=== PATIENT | male | born 1945 | race Caucasian/White ===

== ENCOUNTER 2017-01-07 13:15 | Emergency (ER) | payer MEDICARE ==
[~2017-01-07] VITALS: Ht 175.3 cm; Wt 114.3 kg
[~2017-01-07 13:15] MED LIST: ADVIL PM CAPLE1 EACH PO; ADVIL200 M1 PO; ALBUTEROL2.5 MG/3 M INH; AMITRIPTYLINE H50 MG PO; AMITRIPTYLINE100 MG PO; AMOX TR-K CLV1 EACH PO; AMOXICILLIN875 MG PO; ASCORBIC ACID500 M3 PO; ASPIRIN EC81 MG PO; AZITHROMYCIN500 MG PO; BABY ASPIRIN81 MG PO; BACTRIM DS TAB1 EACH PO; BYETTA10 MCG/0.0 SQ; BYETTA10 MCG/0.0 SUB-Q; CETIRIZINE HCL10 MG PO; DICLOFENAC SODI75 MG PO; DOCUSATE SODIU100 MG PO; DULOXETINE HCL60 MG PO; ENDOCET 10-3251 EACH PO; FAMOTIDINE20 MG PO; FENOFIBRATE145 MG PO; FERROUS SULFAT325 MG PO; FUROSEMIDE40 MG PO; GABAPENTIN300 MG PO; GEMFIBROZIL600 MG PO; GLUCOPHAGE500 MG PO; LEVOTHYROXINE50 MCG PO; LIPITOR10 MG PO; LIPITOR40 MG PO; LISINOPRIL5 MG PO; MELOXICAM15 MG PO; METFORMIN HCL500 MG PO; METOPROLOL TART25 MG PO; MULTIVITAMINS1 EAC7 PO; ONDANSETRON HCL8 MG PO; OXYCODONE HCL20 M1 PO; PACERONE400 MG PO; PERCOCET 5-3251 EACH PO; POLYETHYLENE GL17 GM PO; POTASSIUM CHLO20 ME1 PO; PROAIR HFA8.5 GM INH; SERTRALINE HCL100 MG PO; SIMVASTATIN40 MG PO; TAMSULOSIN HCL0.4 MG PO; TRAZODONE HCL100 MG PO; TRAZODONE HCL50 MG PO; TYLENOL EXTRA500 MG PO; VITAMIN D32000 UNIT PO; ZESTRIL40 MG PO
[2017-01-07] MEDS ORDERED: LOVASTATIN40 MG PO (13:27)
[2017-01-07] MEDS ORDERED: DICLOFENAC SODI75 MG PO (13:28)
== END 2017-01-07 14:30 | disposition home or self-care (01) ==
LOC: ED 13:15
PROC: 0HQ0XZZ Repair Scalp Skin, External Approach (ICD-10-PCS; principal; 2017-01-07)
DX: S01.01XA Laceration without foreign body of scalp, initial encounter (principal); E11.9 Type 2 diabetes mellitus without complications; I10 Essential (primary) hypertension; J45.909 Unspecified asthma, uncomplicated; Z95.2 Presence of prosthetic heart valve; Z79.899 Other long term (current) drug therapy; Z79.82 Long term (current) use of aspirin; W11.XXXA Fall on and from ladder, initial encounter
CPT/HCPCS: 12002; 70450; 99284

== ENCOUNTER 2017-01-16 08:53 | Emergency (ER) | payer MEDICARE ==
[~2017-01-16] VITALS: Ht 175.3 cm; Wt 113.4 kg
[~2017-01-16 08:53] MED LIST changes: +LOVASTATIN40 MG PO
== END 2017-01-16 09:00 | disposition home or self-care (01) ==
LOC: ED 08:53
DX: Z48.817 Encounter for surgical aftercare following surgery on the skin and subcutaneous tissue (principal); E11.9 Type 2 diabetes mellitus without complications; I10 Essential (primary) hypertension; J45.909 Unspecified asthma, uncomplicated; Z96.643 Presence of artificial hip joint, bilateral; Z95.2 Presence of prosthetic heart valve; Z79.899 Other long term (current) drug therapy; Z79.82 Long term (current) use of aspirin; Z79.84 Long term (current) use of oral hypoglycemic drugs; Z79.2 Long term (current) use of antibiotics

== ENCOUNTER 2017-09-28 15:49 | Emergency (ER) | payer MEDICARE ==
[~2017-09-28] VITALS: Ht 175.3 cm; Wt 113.5 kg
[~2017-09-28 15:49] MED LIST changes: +GABAPENTIN600 MG PO
[2017-09-28] MEDS ORDERED: PERCOCET 7.5-31 EACH PO (16:53)
== END 2017-09-28 17:05 | disposition home or self-care (01) ==
LOC: ED 15:49
DX: S29.9XXA Unspecified injury of thorax, initial encounter (principal); I10 Essential (primary) hypertension; E11.9 Type 2 diabetes mellitus without complications; J45.909 Unspecified asthma, uncomplicated; Z79.899 Other long term (current) drug therapy; Z79.82 Long term (current) use of aspirin; Z79.84 Long term (current) use of oral hypoglycemic drugs; X58.XXXA Exposure to other specified factors, initial encounter
CPT/HCPCS: 71046; 99283

== ENCOUNTER 2017-09-30 04:14 | Emergency (ER) | payer MEDICARE ==
[~2017-09-30] VITALS: Ht 175.3 cm; Wt 113.4 kg
[~2017-09-30 04:14] MED LIST changes: +PERCOCET 7.5-31 EACH PO
[2017-09-30] MEDS ORDERED: DULOXETINE HCL60 MG PO (04:34)
[2017-09-30] MEDS ORDERED: ROSUVASTATIN CA20 MG PO (04:34)
[2017-09-30] MEDS ORDERED: ONDANSETRON HCL8 MG PO (04:36)
--- NOTE | 2017-09-30 06:55 | EKG ---
[facility] [address] [facility] [address] [place], [place] [address] Signed Normal sinus rhythm Normal ECG No previous ECGs available Confirmed by NAVDEEP LUCIANO MD ([id number]) on 09/30/2017 6:55:23 AM Electronically Signed By: NAVDEEP LUCIANO MD 09/30/17 0655 PATIENT NAME: CAROLYNLECHUYHUNTER RODRIGUEZ Electrocardiogram DATE OF : 43 PHYSICIAN: NAVDEEP LUCIANO MD REPORT #: [id number] REPORT IS CONFIDENTIAL AND NOT TO BE RELEASED WITHOUT AUTHORIZATION
[2017-10-01] MEDS ORDERED: METOPROLOL SUC100 MG PO (04:52)
[2017-10-01] MEDS ORDERED: METOPROLOL TART50 MG PO (04:56)
== END 2017-09-30 06:25 | disposition home or self-care (01) ==
LOC: ED 04:14
PROC: 0T9B70Z Drainage of Bladder with Drainage Device, Via Natural or Artificial Opening (ICD-10-PCS; principal; 2017-09-30)
DX: E11.22 Type 2 diabetes mellitus with diabetic chronic kidney disease (principal); I12.9 Hypertensive chronic kidney disease with stage 1 through stage 4 chronic kidney disease, or unspecified chronic kidney disease; N18.9 Chronic kidney disease, unspecified; G47.30 Sleep apnea, unspecified; J45.909 Unspecified asthma, uncomplicated; Z87.891 Personal history of nicotine dependence; Z79.899 Other long term (current) drug therapy; Z79.82 Long term (current) use of aspirin; Z79.84 Long term (current) use of oral hypoglycemic drugs
CPT/HCPCS: 51702; 71045; 80053; 81001; 83735; 83880; 84484; 85025; 93005; 93010; 96374; 99283

== ENCOUNTER 2017-09-30 13:45 | Inpatient (IN) | payer MEDICARE ==
[~2017-09-30] VITALS: Ht 175.3 cm; Wt 118.4 kg
[~2017-09-30 13:45] MED LIST changes: +ROSUVASTATIN CA20 MG PO
[2017-10-01] MEDS ORDERED: METOPROLOL SUC100 MG PO (04:52)
[2017-10-01] MEDS ORDERED: METOPROLOL TART50 MG PO (04:56)
--- NOTE | 2017-10-01 14:38 | EKG ---
[facility] [address] [facility] [place] [address] Signed Normal sinus rhythm Possible Left atrial enlargement Borderline ECG When compared with ECG of 30-SEP-2017 04:49, No significant change was found Confirmed by CASPER OLGUIN MD ([id number]) on 10/01/2017 2:38:30 PM Electronically Signed By: CASPER OLGUIN MD 10/01/17 1438 PATIENT NAME: CHUY RIVERA Electrocardiogram DATE OF : 43 PHYSICIAN: CASPER OLGUIN MD REPORT #: [id number] REPORT IS CONFIDENTIAL AND NOT TO BE RELEASED WITHOUT AUTHORIZATION
[2017-10-02] MEDS ORDERED: LISINOPRIL5 MG PO (14:43)
[2017-10-02] MEDS ORDERED: LOVASTATIN40 MG PO (15:21)
[2017-10-03] MEDS ORDERED: DOXAZOSIN MESYLA1 MG PO (09:59)
[2017-10-03] MEDS ORDERED: LISINOPRIL20 MG PO (10:01)
[2017-10-03] MEDS ORDERED: METOPROLOL TAR100 MG PO (10:01)
[2017-10-03] MEDS ORDERED: DOXAZOSIN MESYLA2 MG PO (10:10)
== END 2017-10-03 11:15 | disposition home or self-care (01) | DRG 682 ==
LOC: ED 13:45 → CCU 16:55
PROVIDERS: ADMIT Internal Medicine
PROC: 5A09357 Assistance with Respiratory Ventilation, Less than 24 Consecutive Hours, Continuous Positive Airway Pressure (ICD-10-PCS; principal; 2017-09-30)
DX: N17.9 Acute kidney failure, unspecified (principal); G93.41 Metabolic encephalopathy; J96.02 Acute respiratory failure with hypercapnia; M62.82 Rhabdomyolysis; E86.0 Dehydration; I10 Essential (primary) hypertension; N40.0 Benign prostatic hyperplasia without lower urinary tract symptoms; E11.9 Type 2 diabetes mellitus without complications; E03.9 Hypothyroidism, unspecified; E78.5 Hyperlipidemia, unspecified; G89.4 Chronic pain syndrome; F32.9 Major depressive disorder, single episode, unspecified; J45.909 Unspecified asthma, uncomplicated; T40.2X5A Adverse effect of other opioids, initial encounter; Z78.1 Physical restraint status; Z95.3 Presence of xenogenic heart valve; Z88.5 Allergy status to narcotic agent; Z79.84 Long term (current) use of oral hypoglycemic drugs; Z79.1 Long term (current) use of non-steroidal anti-inflammatories (NSAID); Z79.82 Long term (current) use of aspirin; Z79.899 Other long term (current) drug therapy
CPT/HCPCS: 36415; 36600; 70450; 71045; 80048; 80053; 81001; 82550; 82570; 82607; 82803; 83605; 83735; 83880; 84300; 84443; 84484; 84540; 85025; 87088; 93005; 93010; 94640; 94660; J0696; J1630; J1650; J2060; J2310; J2405; J2930; J3475; J7030; J7120

== ENCOUNTER 2018-08-07 10:38 | Emergency (ER) | payer MEDICARE ==
[~2018-08-07] VITALS: Ht 175.3 cm; Wt 120.3 kg
[~2018-08-07 10:38] MED LIST changes: +DOXAZOSIN MESYLA1 MG PO; +DOXAZOSIN MESYLA2 MG PO; +LISINOPRIL20 MG PO; +METOPROLOL SUC100 MG PO; +METOPROLOL TAR100 MG PO; +METOPROLOL TART50 MG PO
--- OUTSIDE RECORDS SUMMARY | 2018-08-07 10:42 | XMS ---
PreManage Notification: CHUY RIVERA Security Powderman Events No recent Security Events currently on file CRITERIA MET - Group Notification - PDMP CARE PROVIDERS DR GRAEME ARANA Primary Care Current PHONE: [phone] Abelardo Frausto MD Primary Care Current PHONE: Unknown oraleyda Case or Mail Examiner Current PHONE: Unknown Gerardo has no Care Guidelines for this patient. EThor VISIT COUNT (12 MO.) 4 [facility] TOTAL 4 NOTE: Visits indicate total known visits. ED/UCC VISIT TRACKING (12 MO.) 08/07/2018 10:39 [facility] [place] TYPE: Emergency COMPLAINT: - FALL 09/30/2017 13:46 [facility] [place] TYPE: Emergency COMPLAINT: - ALTERED LOC 09/30/2017 04:15 [facility] [place] TYPE: Emergency COMPLAINT: - SWELLING, DIZZY DIAGNOSES: - Hypertensive chronic kidney disease with stage 1 through stage 4 chronic kidney disease, or unspecified chronic kidney disease - Shortness of breath - Sleep apnea, unspecified - snf (current) use of oral hypoglycemic drugs - Type 2 diabetes mellitus with diabetic chronic kidney disease - Unspecified asthma, uncomplicated - Other filler leaf cutter long (current) drug therapy - MIDDLE SCHOOL PROFESSIONAL (CURRENT) USE OF ORAL HYPOGLYCEMIC DRUGS - Personal history of nicotine dependence - manager long term care (current) use of aspirin - Chronic kidney disease, unspecified 09/28/2017 15:49 [facility] [place] TYPE: Emergency COMPLAINT: - GLF/LT WRIST INJURY DIAGNOSES: - Unspecified asthma, uncomplicated - Other group home (current) drug therapy - Essential (primary) hypertension - snf (current) use of oral hypoglycemic drugs - Exposure to other specified factors, initial encounter - Type 2 diabetes mellitus without complications - MIDDLE SCHOOL PROFESSIONAL (CURRENT) USE OF ORAL HYPOGLYCEMIC DRUGS - Other chest pain - snf (current) use of aspirin - Unspecified injury of thorax, initial encounter INPATIENT VISIT TRACKING (12 MO.) 09/30/2017 16:55 [facility] [place] TYPE: Critical Care COMPLAINT: - RESP. FAILURE DIAGNOSES: - Metabolic encephalopathy - Benign prostatic hyperplasia without lower urinary tract symptoms - Hypothyroidism, unspecified - Rhabdomyolysis - manager long term care (current) use of oral hypoglycemic drugs - Other group home (current) drug therapy - Adverse effect of other opioids, initial encounter - Chronic pain syndrome - Type 2 diabetes mellitus without complications - Hyperlipidemia, unspecified - Essential (primary) hypertension - Presence of xenogenic heart valve - Acute kidney failure, unspecified - Unspecified asthma, uncomplicated - Allergy status to narcotic agent status - snf (current) use of aspirin - Acute respiratory failure with hypercapnia - Major depressive disorder, single episode, unspecified - Physical restraint status - manager long term care (current) use of non-steroidal anti-inflammatories (NSAID) - Dehydration [email or web address]
[2018-08-07] MEDS ORDERED: VITAMIN C1000 MG PO (11:49)
[2018-08-07] MEDS ORDERED: ZYRTEC10 M3 PO (11:50)
== END 2018-08-07 13:45 | disposition home or self-care (01) ==
LOC: ED 10:38
DX: S39.012A Strain of muscle, fascia and tendon of lower back, initial encounter (principal); W18.30XA Fall on same level, unspecified, initial encounter; E11.9 Type 2 diabetes mellitus without complications; I10 Essential (primary) hypertension; J45.909 Unspecified asthma, uncomplicated; Z87.891 Personal history of nicotine dependence; Z88.5 Allergy status to narcotic agent; Z79.899 Other long term (current) drug therapy; Z79.82 Long term (current) use of aspirin
CPT/HCPCS: 72100; 99283

== ENCOUNTER 2018-08-07 19:46 | Emergency (ER) | payer MEDICARE ==
[~2018-08-07] VITALS: Ht 175.3 cm; Wt 120.3 kg
[~2018-08-07 19:46] MED LIST changes: +VITAMIN C1000 MG PO; +ZYRTEC10 M3 PO
--- OUTSIDE RECORDS SUMMARY | 2018-08-07 19:50 | XMS ---
PreManage Notification: CHUY RIVERA Security Brake Repairer Events No recent Security Events currently on file CRITERIA MET - Group Notification - [facility] - 2 Visits in [address] GRAEME ARANA Primary Care Current PHONE: [phone] Abelardo Frausto MD Primary Care Current PHONE: Unknown isabel Case or Orthodontic Technician Assistant Current PHONE: Unknown Gerardo has no Care Guidelines for this patient. E.D. VISIT COUNT (12 MO.) 5 [facility] TOTAL 5 NOTE: Visits indicate total known visits. ED/UCC VISIT TRACKING (12 MO.) 08/07/2018 19:47 [facility] [place] TYPE: Emergency COMPLAINT: - WEAKNESS 08/07/2018 10:39 [facility] [place] TYPE: Emergency COMPLAINT: - FALL 09/30/2017 13:46 [facility] [place] TYPE: Emergency COMPLAINT: - ALTERED LOC 09/30/2017 04:15 [facility] [place] TYPE: Emergency COMPLAINT: - SWELLING, DIZZY DIAGNOSES: - Hypertensive chronic kidney disease with stage 1 through stage 4 chronic kidney disease, or unspecified chronic kidney disease - Shortness of breath - Sleep apnea, unspecified - parts counterman (current) use of oral hypoglycemic drugs - Type 2 diabetes mellitus with diabetic chronic kidney disease - Unspecified asthma, uncomplicated - Other correction (current) drug therapy - PEST CONTROL SPECIALIST (CURRENT) USE OF ORAL HYPOGLYCEMIC DRUGS - Personal history of nicotine dependence - [facility] (current) use of aspirin - Chronic kidney disease, unspecified 09/28/2017 15:49 [facility] [place] TYPE: Emergency COMPLAINT: - GLF/LT WRIST INJURY DIAGNOSES: - Unspecified asthma, uncomplicated - Other correction (current) drug therapy - Essential (primary) hypertension - [facility] (current) use of oral hypoglycemic drugs - Exposure to other specified factors, initial encounter - Type 2 diabetes mellitus without complications - PEST CONTROL SPECIALIST (CURRENT) USE OF ORAL HYPOGLYCEMIC DRUGS - Other chest pain - parts counterman (current) use of aspirin - Unspecified injury of thorax, initial encounter INPATIENT VISIT TRACKING (12 MO.) 09/30/2017 16:[address] [facility] [place] TYPE: Critical Care COMPLAINT: - RESP. FAILURE DIAGNOSES: - Metabolic encephalopathy - Benign prostatic hyperplasia without lower urinary tract symptoms - Hypothyroidism, unspecified - Rhabdomyolysis - [facility] (current) use of oral hypoglycemic drugs - Other termite control technician (current) drug therapy - Adverse effect of other opioids, initial encounter - Chronic pain syndrome - Type 2 diabetes mellitus without complications - Hyperlipidemia, unspecified - Essential (primary) hypertension - Presence of xenogenic heart valve - Acute kidney failure, unspecified - Unspecified asthma, uncomplicated - Allergy status to narcotic agent status - [facility] (current) use of aspirin - Acute respiratory failure with hypercapnia - Major depressive disorder, single episode, unspecified - Physical restraint status - [facility] (current) use of non-steroidal anti-inflammatories (NSAID) - Dehydration [email or web address]
--- NOTE | 2018-08-08 15:35 | EKG ---
[facility] [address] [facility] [place], [place] [address] Signed Normal sinus rhythm Possible Left atrial enlargement Borderline ECG When compared with ECG of 30-SEP-2017 14:34, No significant change was found Confirmed by TERESITA MALONE DO ([id number]) on 08/08/2018 3:35:10 PM Electronically Signed By: TERESITA MALONE DO 08/08/18 1535 PATIENT NAME: CHUY RIVERA Electrocardiogram DATE OF : 43 PHYSICIAN: TERESITA MALONE DO REPORT #: [id number] REPORT IS CONFIDENTIAL AND NOT TO BE RELEASED WITHOUT AUTHORIZATION
== END 2018-08-08 01:24 | disposition short-term general hospital (02) ==
LOC: ED 19:46 → CCU 23:57 → ED 08-08 01:24
DX: N28.9 Disorder of kidney and ureter, unspecified (principal); R41.82 Altered mental status, unspecified; R07.9 Chest pain, unspecified; R79.89 Other specified abnormal findings of blood chemistry; E11.9 Type 2 diabetes mellitus without complications; I10 Essential (primary) hypertension; J45.909 Unspecified asthma, uncomplicated; Z87.891 Personal history of nicotine dependence; Z88.5 Allergy status to narcotic agent; Z79.899 Other long term (current) drug therapy; Z79.82 Long term (current) use of aspirin
CPT/HCPCS: 70450; 71045; 80053; 81001; 84484; 85025; 93005; 93010; 99285-25; G0480

== ENCOUNTER 2019-06-20 08:12 | Inpatient (IN) | payer MEDICARE, OTHER ==
[~2019-06-20] VITALS: Ht 175.3 cm; Wt 110.6 kg
[~2019-06-20 08:12] MED LIST changes: +LISINOPRIL-HCT1 EAC1 PO; +LISINOPRIL40 MG PO; +METOPROLOL SUC200 MG PO; -MULTIVITAMINS1 EAC7 PO; +MULTIVITAMINS1 EAC8 PO
--- OUTSIDE RECORDS SUMMARY | 2019-06-20 08:16 | XMS ---
PreManage Notification: CHUY RIVERA Security Vmware Consultant Events No recent Security Events currently on file CRITERIA MET - Group Notification - [facility] Guidelines - [facility] CARE PROVIDERS GRAEME ARANA Internal Medicine 08/08/2018-Current PHONE: Unknown DR GRAEME ARANA Primary Care Current PHONE: [phone] Abelardo Frausto MD Primary Care Current PHONE: Unknown oraleyda Case or Pocket Builder Current PHONE: Unknown Gerardo has no Care Guidelines for this patient. Care History Medical/Surgical 08/08/2018 [facility] - CHW RECEIVED CASE MANAGEMENT REFERRAL AND ED CASE MANAGEMENT CONSULT- PATIENT IS A CLINIC PATIENT AND REFERRAL WAS PROVIDED TO NAVEEN FOR FURTHER FOLLOW UP. - Patient is currently established with [facility]. If patient is seen in the ED during business hours. Please contact CHWs at [facility]. Care Recommendation: This patient has had 5 or more Emergency Department visits in the last 12 months.\T\nbsp; Patient requires education on the scope and purpose of the ED as an acute care provider not a Primary Care Provider and should not be utilized for chronic conditions.\T\nbsp; These are guidelines and the provider should exercise clinical judgment when providing care. E.D. VISIT COUNT (12 MO.) 4 [facility] TOTAL 4 NOTE: Visits indicate total known visits. ED/UCC VISIT TRACKING (12 MO.) 06/20/2019 08:13 [facility] [place] TYPE: Emergency COMPLAINT: - COUGH, FEVER 11/17/2018 17:41 [facility] [place] TYPE: Emergency COMPLAINT: - VOMITING 08/07/2018 19:47 [facility] [place] TYPE: Emergency COMPLAINT: - SEPSIS UTI DIAGNOSES: - long term care pharmacist (current) use of aspirin - Other shelter (current) drug therapy - Weakness - Disorder of kidney and ureter, unspecified - Altered mental status, unspecified - Essential (primary) hypertension - Unspecified asthma, uncomplicated - Personal history of nicotine dependence - Chest pain, unspecified - Other specified abnormal findings of blood chemistry - Allergy status to narcotic agent status - 1 Type 2 diabetes mellitus without complications 08/07/2018 10:39 [facility] [place] TYPE: Emergency COMPLAINT: - FALL DIAGNOSES: - Other termite control servicer (current) drug therapy - Strain of muscle, fascia and tendon of lower back, init - Personal history of nicotine dependence - skilled nursing (current) use of aspirin - Allergy status to narcotic agent status - Essential (primary) hypertension - Unspecified asthma, uncomplicated - Fall on same level, unspecified, initial encounter - 1 Type 2 diabetes mellitus without complications INPATIENT VISIT TRACKING (12 MO.) 11/17/2018 17:42 [facility] [place] TYPE: Observation COMPLAINT: - HYPONATREMIA, GASTRITIS DIAGNOSES: - Other termite control servicer (current) drug therapy - Dehydration - Viral intestinal infection, unspecified Viral int - Personal history of nicotine dependence - Insomnia, unspecified - Presence of prosthetic heart valve - Hypomagnesemia - Cervicalgia - Allergy status to narcotic agent status - skilled nursing (current) use of aspirin - Heatstroke and sunstroke, initial encounter - Essential (primary) hypertension - Other chronic pain - Other disorders of phosphorus metabolism - Hypo-osmolality and hyponatremia - Lower abdominal pain, unspecified - Hypokalemia - Unspecified asthma, uncomplicated - Hypothyroidism, unspecified - 1 Type 2 diabetes mellitus without complications - Benign prostatic hyperplasia without lower urinry tract symp 08/07/2018 23:57 [facility] [place] TYPE: Critical Care COMPLAINT: - SEPSIS UTI [email or web address]
--- NOTE | 2019-06-20 11:46 | NUR ---
MANY FAMILY MEMBERS IN ROOM. NO FUTHER CHANGES.
--- NOTE | 2019-06-20 14:15 | NUR ---
PT ADMITTED TO ROOM 130 IN DROPPLET ISOLATION. PT IS COUGHING ALL OVER HIMSELF AND OTHERS IN THE ROOM. GRANDSON IN ROOM AT THIS TIME AND DAUGHTER IN THE ROOM. DAUGHTER SAI WILL TAKE HOME PT WALLET. LUNCHED ORDER FOR PT THIS AFTERNOON.
--- NOTE | 2019-06-20 14:33 | NUR ---
PT UP TO BS COMMODE VOID ON THE FLOOR AND NOT ONE BIT IN THE COMMODE. FLOOR CLEANED UP. PT STATES "I HAVE GAINED WEIGHT SO NOW MY RUTHANN DOES NOT STICK OUT SO THAT IS WHY I PEE ON THE FLOOR" THIS VEHICLE INSPECTOR DID NOT SAY A WORD TO PT.
--- NOTE | 2019-06-20 17:01 | NUR ---
PT INCONTENT OF URINE IN BED. PT STATES " I COULD NOT FIND MY CALL LIGHT" CALL LIGHT IS WITHIN REACH ON HIS STOMACH. COMPLETE LINE CHANGE DONE AND PT GIVEN A PARTICAL BEDBATH. PT UP TO THE CHAIR FOR DINNER.
--- NOTE | 2019-06-20 17:10 | EKG ---
[facility] [address] [place] [address] Signed Sinus tachycardia with frequent premature ventricular complexes Possible Left atrial enlargement Borderline ECG When compared with ECG of 17-NOV-2018 18:18, premature ventricular complexes are now present Confirmed by CASPER OLGUIN MD ([id number]) on 06/20/2019 5:10:09 PM Electronically Signed By: CASPER OLGUIN MD 06/20/19 1710 PATIENT NAME: CHUY RIVERA Electrocardiogram DATE OF : 43 PHYSICIAN: CASPER OLGUIN MD REPORT #: [id number] REPORT IS CONFIDENTIAL AND NOT TO BE RELEASED WITHOUT AUTHORIZATION
--- NOTE | 2019-06-20 17:43 | NUR ---
PT REMAINS UP IN THE CHAIR AT THIS TIME EATTING DINNER, CALL LIGHT WITHIN REACH. PT HAS TV ON. NO C/O'S AT THIS TIME.
--- NOTE | 2019-06-20 18:47 | NUR ---
PT AMBULATED TO BATHROOM, VOIDED AND BACK TO THE BED. PT ATE MOST OF HIS DINNER BUT DID NOT LIKE THE BREAD.
--- NOTE | 2019-06-20 19:59 | NUR ---
CALL LIGHT ANSWERED, PT REQUESTING PM MEDS AND EXPRESSES CONCERN REGARDING INCONTINTENCE. EDUCATION PROVIDED ON MED SCHEDULE AND SLEEP HYGIENE, PT VERBALIZED UNDERSTANDING. PT ORIENTED TO CALL LIGHT, BUILT IN BED CALL LIGHT, AND URINAL AT BEDSIDE. R/T IN ROOM TO GIVE NEB AND ASSESS PT.
--- NOTE | 2019-06-20 20:25 | NUR ---
PT SBA TO BEDSIDE, EDUCATION ON URINAL USE, PT DECLINED AND REQUEST BSC. PT REFUSING TO FOLLOW COMMANDS TO SAFELY SIT. LARGE VOID ONTO FLOOR. PT CLEANED AND ASSISTED BACK TO BED. PT ADVISED FOR SAFETY BEDSIDE URINAL WILL BE USED, PT AGREEABLE. ASSESSMENT COMPLETED SEE DOCUMENTATION. CALL LIGHT WITHIN REACH. PT ABLE TO DEMONSTRATE HE CAN REACH CALL LIGHT.
--- NOTE | 2019-06-20 21:25 | NUR ---
PM MED GIVEN, EDUCATION PROVIDED ON TAMIFLU, NO QUESTIONS. ASSESSED NEED TO VOID, DECLINED. DECLINED PM CARE AT THIS TIME. CALL LIGHT WITHIN REACH.
--- NOTE | 2019-06-20 22:14 | NUR ---
PT CONTINUES TO HAVE CONSTANT NAGGING COUGH. PRN TESSALON PERLS GIVEN. TOLIETING OFFERED, DECLINED. CALL LIGHT WITHIN REACH.
--- NOTE | 2019-06-21 00:26 | NUR ---
NO ACUTE CHANGES TO ASSESSMENT. PT ENCOURAGED TO WEAR OXYMASK, REFUSED. PT AGREEABLE TO NC. OXYGEN TITRATED TO 4L NC. AFEBRILE. COUGH CONTINUES, PRN MEDICATION GIVEN. TOILETING OFFERED, DECLINED. DENIES OTHER NEEDS. CALL LIGHT WITHIN REACH AND ASSESSED ABILITY TO REACH CALL LIGHT.
--- NOTE | 2019-06-21 02:02 | NUR ---
PT RESTING WITH EYES CLOSED, RESPIRATIONS EVEN, SPO2 92% ON 4L NC. NO ACUTE DISTRESS NOTED. NO ACUTE CHANGES.
--- NOTE | 2019-06-21 03:50 | NUR ---
CALL LIGHT ANSWERED, PT SBA TO BEDSIDE TO USE URINAL, HELP NEEDED, VOID 580. PT NOTED TO BE DIAPHORETIC, TEMP 99.9 ORALLY, C/O 5/10 GENERALIZED PAIN, 500 MG PRN TYLENOL GIVEN. WASH CLOTH FOR FACE AND BODY PROVIDED AND GOWN CHANGE. LINEN CHANGED. BACK TO BED. WATER OFFERED, DECLINED AND REQUESTS DIET SODA, PROVIDED. ASSESSMENT UNCHANGED. PRN COUGH MEDICATION PROVIDED. ICE PACK PROVIDED. CALL LIGHT WITHIN REACH. DENIES OTHER NEEDS. R/T IN ROOM TO GIVE NEB AND ASSESS PT.
--- NOTE | 2019-06-21 05:30 | NUR ---
PT C/O ABD PAIN FROM COUGH. STATES A PILLOW HELPED WHEN HE HAD OPEN HEART SURGERY. REINFORCED BRACE TECHNIQUE AND PILLOW PROVIDED.
--- NOTE | 2019-06-21 06:19 | NUR ---
PT STATES THE BRACE PILLOW "HAS HELPED SO MUCH." PRN COUGH MED GIVEN. UPDATED PLAN OF CARE. BREAKFAST ORDER OBTAINED. DENIES OTHER NEEDS. CALL LIGHT WITHIN REACH.
--- NOTE | 2019-06-21 07:30 | NUR ---
REPORT RECIEVED. PATIENT REMAINS IN DROPLET PRECAUTIONS. IS SLEEPING WITH HOB ELEVATED.
--- NOTE | 2019-06-21 08:25 | NUR ---
UP TO CHAIR FOR BREAKFAST. COOPERATIVE.
--- NOTE | 2019-06-21 09:10 | NUR ---
TOOK BREAKFAST WELL. TO BR TO VOID AND EXPELL LIQ STOOL. THEN BACK TO BED. LESS SHORT OF BREATH WITH EXERTION.
--- NOTE | 2019-06-21 10:00 | NUR ---
RESTFUL. WATCHING TV IN BED. IS W/O C/O.
--- NOTE | 2019-06-21 12:45 | NUR ---
UP TO CHAIR FOR LUNCH. IS FAIRLY STABLE ON FEET.
--- NOTE | 2019-06-21 13:30 | NUR ---
TOOK LUNCH WELL. WISHES TO REMAIN IN CHAIR. IS W/O C/O OR REQUESTS. CALL LIGHT WITHIN REACH.
--- NOTE | 2019-06-21 15:58 | NUR ---
REMAINS IN CHAIR. NO CHANGES IN ASSESSMENT. CONTINUES WITH LOOSE HACKING COUGH.
--- NOTE | 2019-06-21 16:20 | NUR ---
ambulated to BR. PATIENT IS SOMEWHAT FORGETFUL AND CONFUSED. IS UNABLE TO ANSWERE QUESTIONS. IS FRUSTRATED. IS NOT ABLE TO RATE CURRRENT PAIN LEVEL. TEMP-100.1. TYLENOL 500 MG PO GIVEN. IS MORE UNSTEADY ON FEET, WALKER USED FOR AMBULATION.
--- NOTE | 2019-06-21 17:00 | NUR ---
REMAINS CONFUSED. ASSISTED PATIENT TO BED. CONTINUES TO HAS HARSH COUGH BUT NOT FREQUENT EARLIER.
--- NOTE | 2019-06-21 18:20 | NUR ---
C/O ABOUT THE FOOD AT THIS HOSPITAL. STATES THE BAKED POTATOE WASN'T WORTH EATING. HE THEN BAEGAN TO C/O ABOUT TO FOOD HE ATE YESTERDAY. TOLD PATIENT THAT I WOULD PASS THE MESSAGE ON TO HEAD OF DIETARY, AND IF HE WOULD LIKE HE COULD TALK TO THE HEAD OF DIETARY. ASKED PATIENT IF I COULD GET HE ANYTHING ELSE. ICE CREAM REQUESTED. PATIENT IS NOT CONFUSED NOW EARLIER.
--- NOTE | 2019-06-21 19:08 | NUR ---
REPORT TO NEXT SHIFT. NO FUTHER CHANGES
--- NOTE | 2019-06-21 20:24 | NUR ---
PT ALERT AND WATCHING TV. STILL VERY DISGRUNTLED ABOUT MEALS HERE. PT TO SPEAK WITH DIETARY DEPT. HAS HARSH COUGH THAT PT STAES IS NON PRODUCTIVE. NEB TX GIVEN AND TY WELL. NO SOB AT REST. DENIES NEED TO VOID.
--- NOTE | 2019-06-21 22:40 | NUR ---
SLEEPING, [address] AND SATS APR TO , REPLACED AND SATS BACK TO MID 90'S.
--- NOTE | 2019-06-21 23:42 | NUR ---
NOTES SATS DEC MID 80'S. O2 MASK FOUND OFF. PT SLEEPING SOUNDLY, AWAKENED VERY BRIEFLY DURING ASSESSMENT THEN BACK TO SLEEP. HAS OCC COUGH.
--- NOTE | 2019-06-22 00:55 | NUR ---
HR NOTED TO BE UP TO 110, TEMP 100.8. GIVEN 500MG TYLENOL PO. DENIES NEED TO VOID.
--- NOTE | 2019-06-22 02:00 | NUR ---
SLEEPING. WILL TAKE OXYMASK OFF IN SLEEP, REPLACED FREQ.
--- NOTE | 2019-06-22 03:37 | NUR ---
AWAKE REQUESTING COOL WATER. NO OTHER C/O. AFEBRILE AT THIS TIME. DENIES NEED TO VOID.
--- NOTE | 2019-06-22 05:45 | NUR ---
SLEEPING SOUNDLY OXYMASK IN PLACE AND HOB LOWER THAN EARLIER.
--- NOTE | 2019-06-22 06:11 | NUR ---
LAB IN TO DRAW. PT AWAKE, DENIES NEED TO VOID AND HAS HX OF URGENCY. LITTLE PO INTAKE THROUGH NIGHT HAS BEEN SLEEPING.
--- NOTE | 2019-06-22 07:31 | NUR ---
AMB TO BR TO VOID AND PASSING LARGE AMTS GAS. MISSED HAT SO VOID IS UNMEASURED. BACK TO BED. STATES DOESN'T FEEL ANYMORE SHORT OF BREATH THAN USUAL.
--- NOTE | 2019-06-22 08:00 | NUR ---
ASSESSMENT DONE. STATES PAIN IS LESS TODAY, IS FEELING BETTER TODAY. IS UNDERSTANDING OF PLAN OF CARE FOR DAY.
--- NOTE | 2019-06-22 08:20 | NUR ---
UP TO CHAIR FOR BREAKFAST.
--- NOTE | 2019-06-22 09:00 | NUR ---
TOOK BREAKFAST FAIR. SPONGE BATH GIVEN. LESS COUGHING TODAY.
--- NOTE | 2019-06-22 09:20 | NUR ---
BACK TO BED. WATCHING TV.
--- NOTE | 2019-06-22 11:45 | NUR ---
DR. MALONE HERE TO SEE PATIENT. ORDERS RECIEVED TO TRANSFER TO MED-SURG.
--- NOTE | 2019-06-22 12:20 | NUR ---
REFUSING LUNCH. C/O OF THE FOOD HE HAS HAD HERE. SAID HIS GRANDDAUGHTER WILL BE BRING HIM IN FOOD. DIETARY DEPARTMENT MAD AWARE OF THIS.
--- NOTE | 2019-06-22 13:15 | NUR ---
REPORT TO MED-SURG.
--- NOTE | 2019-06-22 13:35 | NUR ---
AMBULATED TO ROOM 118 FROM 130. TOLERATED WELL.
--- NOTE | 2019-06-22 13:59 | NUR ---
PT WALKED OVER TO THE FLOOR FROM THE UNIT WITH FWW. HE WAS ON 4L O2 VIA NC. TOLERATED WELL. ALL PERSONAL BELONGINGS BROUGHT OVER TO NEW ROOM. LUNGS ARE CORSE THROUGHOUT, WITH SOME RONCHI. SWITCHED TO OXYMASK PER PT PREFRENCE AT 2L. PT BACK IN BED. FAMILY AT BEDSIDE.
--- NOTE | 2019-06-22 18:47 | NUR ---
PT IS REQUESTING A SHOWER. HE DECLINED A SHOWER SEVERAL TIMES THIS AFTERNOON. HE WANTED A SHOWER AFTER DINNER. PEER EDUCATOR IS GETTING HIM IN THE SHOWER.
--- NOTE | 2019-06-22 19:00 | NUR ---
BEDSIDE REPORT RECEIVED FROM OFFGOING RNSUPA
--- NOTE | 2019-06-22 19:02 | NUR ---
DID PATIENT'S VITALS AND I AND O BEFORE GETTING IN THE SHOWER. HE WASHED HIS WHOLE BODY EXCEPT HE NEEDED HELP WASHING HIS BACK. NOW PATIENT IS IN BED WATCHING TV AND RESTING. HAS HIS OXYGEN PARACHUTIST/COMBATANT DIVER QUALIFIED LIGHT.
--- NOTE | 2019-06-22 20:06 | NUR ---
ANSWERED CALL LIGHT. SBA TO THE BATHROOM. PATIENT REFUSED TO USE THE WALKER, STATED"I DONT NEED THAT".
--- NOTE | 2019-06-22 21:34 | NUR ---
PT ASSESSMENT COMPLETE. PT DENIES PAIN OR NAUSEA. PT REPORTS SOB, ESPECIALLY AFTER COUGHING HE STATES. PT REPORTS PRODUCTIVE COUGH. LUNG SOUNDS WITH RHONCI AND EXPIRATORY WHEEZE THROUGHOUT. OXYMASK IN PLACE @ 2LPM. IV FLUSHED, PATENT, WNL. PT ASKING IF OBIE KNOWS WHEN HE WOULD BE ABLE TO GO HOME. WRITTEN AND VERBAL EDUCATION PROVIDED REGARDING INFLUENZA, TYPICAL COURSE OF CARE. PT ASKS APPROPRIATE QUESTIONS. STATES UNDERSTANDING. PT DENIES FURTHER NEEDS AT THIS TIME. CALL LIGHT IN REACH.
--- NOTE | 2019-06-23 00:54 | NUR ---
PT FOUND RESTING WITH EYES CLOSED, SITTING ON EDGE OF BED. PT IS VERY DROWSY, HAD A HARD TIME FOLLOWING COMMANDS TO GET LAID BACK IN BED. ON AWAKE COUNSELOR ASKS IF PT'S NIGHT MEDS MAKE HIM DROWSY, HE SAYS THEY DO. PT REPORTS PAIN AND SHOULDER PAIN, RATES 6/10. PRN TYLENOL ADMINISTERED. PT RESTING, LAID BACK IN BED. URINAL AND CALL LIGHT IN REACH.
--- NOTE | 2019-06-23 02:13 | NUR ---
PT RESTIN GIN BED WITH EYES CLOSED. RESPIRATIONS LABORED, EVEN. OXYMASK OUT OF PLACE, FIXED BY THIS BILLET ASSEMBLER. PT WAKES UP BRIEFLY, FALLS BACK TO SLEEP EASILY. CALL LIGHT IN REACH.
--- NOTE | 2019-06-23 02:56 | NUR ---
PT ASSESSMENT COMPLETE. PT WAKES EASILY BUT REMAINS VERY DROWSY THROUGHOUT ASSESSMENT. PT AGREES TYLENOL HELPED WITH PAIN. REPORTS LIGHT SOB. DENIES NAUSEA. LUNG SOUNDS WITH RHONCI THROUGHOUT. OXYMASK AGAIN DISPLACED, FIXED BY THIS SAND SHOVELER. PT DENIES NEEDS. CALL LIGHT IN REACH.
--- NOTE | 2019-06-23 05:30 | NUR ---
PT RESTED WELL AFTER HIS SCHEDULED PM MEDICATIONS. TYLENOL X 1 FOR PAIN. PT REPORTS SOB WITH COUGHING. O2 @ 2LPM VIA OXYMASK. LUNG SOUNDS ADVENTITIOUS. PRODUCTIVE COUGH. PT USES URINAL. 1 PA WITH FWW. IV SL.
--- NOTE | 2019-06-23 07:12 | NUR ---
RECIEVED BEDSIDE REPORT FROM STEFFI YANCEY. PT IS AWAKE AND ALERT IN ROOM. HAS BEEN ON THE PHONE FREQUENTLY. HE REMOVES THE OXYMASK FREQUENTLY, O2 SATS REMAIN IN THE MID-90S WITHOUT THE MASK ON. PT IS ANXIOUS TO DC. BED ALARM ON. PT HAS PRODUCTIVE COUGH.
--- NOTE | 2019-06-23 08:29 | NUR ---
PATIENT RESTING IN BED. RESPIRATORY THERAPIST IN ROOM. PATIENT'S HANDS AND FACE CLEANED. PATIENT REFUSED TO TAKE A SHOWER TODAY BECAUSE HE TOOK A SHOWER YESTERDAY. CALL LIGHT WITHIN REACH. NO OTHER NEEDS AT THIS TIME.
--- NOTE | 2019-06-23 09:56 | NUR ---
PATIENT SITTING UP IN CHAIR TAKING HIS BREAKFAST. VITAL SIGNS AND I&O DONE.CHAIR ALARM ON. CALL LIGHT WITHIN REACH. NO OTHER NEEDS AT THIS TIME
--- NOTE | 2019-06-23 10:29 | NUR ---
PT IS WALKING IN HALLS WITH PHYSICAL THERAPY. PT HAS MASK ON AND REMINDED NOT TO TOUCH THINGS IN THE [place].
--- NOTE | 2019-06-23 11:44 | NUR ---
RT, KB, REPORTED TO RN THAT PT IS MAINTAINING O2 SATS BETWEEN 93-95% ON ROOM AIR. PT HAS STRONG, PRODUCTIVE COUGH. DR MALONE UPDATED.
[2019-06-23] MEDS ORDERED: VENTOLIN HFA18 GM INH (12:51)
[2019-06-23] MEDS ORDERED: COMBIVENT RESPIM4 GM INH (12:51)
[2019-06-23] MEDS ORDERED: OSELTAMIVIR PHO75 MG PO (13:07)
[2019-06-23] MEDS ORDERED: AMLODIPINE BESYL5 MG PO (13:07)
[2019-06-23] MEDS ORDERED: BENZONATATE100 MG PO (13:08)
--- NOTE | 2019-06-23 13:37 | NUR ---
MED REC COMPLETE
--- NOTE | 2019-06-23 14:31 | NUR ---
PATIENT SITTING UP IN BED. VITAL SIGNS AND I&O DONE. CALL LIGHT WITHIN REACH. NO OTHER NEEDS AT THIS TIME
== END 2019-06-23 14:45 | disposition home or self-care (01) | DRG 193 ==
LOC: ED 08:12 → CCU 11:25 → MS 11:25
PROVIDERS: ADMIT Internal Medicine
DX: J10.1 Influenza due to other identified influenza virus with other respiratory manifestations (principal); J96.01 Acute respiratory failure with hypoxia; F33.8 Other recurrent depressive disorders; I10 Essential (primary) hypertension; E11.9 Type 2 diabetes mellitus without complications; G89.4 Chronic pain syndrome; J45.20 Mild intermittent asthma, uncomplicated; F51.04 Psychophysiologic insomnia; Z87.891 Personal history of nicotine dependence; Z79.82 Long term (current) use of aspirin; Z79.899 Other long term (current) drug therapy; Z95.3 Presence of xenogenic heart valve
CPT/HCPCS: 36415; 71045; 80048; 80053; 83605; 85025; 87502; 93005; 93010; 94640; 94667; 94668; 96361; 96374; 97162; 99285-25; J1650; J1815; J2270; J7030; J7121

== ENCOUNTER 2020-05-25 11:04 | Observation (INO) | payer MEDICARE, OTHER ==
[~2020-05-25] VITALS: Ht 175.3 cm; Wt 117.9 kg
[~2020-05-25 11:04] MED LIST changes: +AMLODIPINE BESYL5 MG PO; +BENZONATATE100 MG PO; +COMBIVENT RESPIM4 GM INH; +OSELTAMIVIR PHO75 MG PO; -TRAZODONE HCL100 MG PO; +VENTOLIN HFA18 GM INH
--- OUTSIDE RECORDS SUMMARY | 2020-05-25 11:08 | XMS ---
PreManage Notification: CHUY RIVERA Security Pharmacy Technician Infusion Events No recent Security Events currently on file CRITERIA MET - Group Notification - [facility] - Has Care Guidelines CARE PROVIDERS GRAEME ARANA Internal Medicine 08/08/2018-Current PHONE: [phone] Gerardo has no Care Guidelines for this patient. Care History Medical/Surgical 06/23/2019 [facility] Patient admitted. Has follow up with Dr. Arana on 06/24/2019 08/08/2018 [facility] - CHW RECEIVED CASE MANAGEMENT REFERRAL AND ED CASE MANAGEMENT CONSULT- PATIENT IS A CLINIC PATIENT AND REFERRAL WAS PROVIDED TO NAVEEN FOR FURTHER FOLLOW UP. - Patient is currently established with [facility]. If patient is seen in the ED during business hours. Please contact CHWs at [facility]. Care Recommendation: This patient has had 5 [...] providing care. E.D. VISIT COUNT (12 MO.) 1 [facility] 2 [facility] TOTAL 3 NOTE: Visits indicate total known visits. ED/UCC VISIT TRACKING (12 MO.) 05/25/2020 11:[address] [facility] [place] TYPE: Emergency COMPLAINT: - UNABLE TO WALK, LOW B/P 11/29/2019 12:03 [facility] [place] TYPE: Emergency DIAGNOSES: - Lumbago with sciatica, left side - LOWER BACK LEFT HIP AND KNEE PAIN 06/20/2019 08:13 [facility] [place] TYPE: Emergency COMPLAINT: - COUGH, FEVER INPATIENT VISIT TRACKING (12 MO.) 06/20/2019 11:25 [facility] [place] TYPE: Medical Surgical COMPLAINT: - RESPIRATORY FAILURE, INFLUENZA DIAGNOSES: - Presence of xenogenic heart valve - Influenza due to other identified influenza virus with other respiratory manifestations - Chronic pain syndrome - Personal history of nicotine dependence - Psychophysiologic insomnia - Other recurrent depressive disorders - Essential (primary) hypertension - 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
[2020-05-25] MEDS ORDERED: MONTELUKAST SOD10 MG PO (11:18)
--- NOTE | 2020-05-25 15:40 | NUR ---
PT ARRIVED TO FLOOR VIA STRETCHER. TRANSFER SBA TO BED. VITALS TAKEN AND STABLE. ASSESSMENT COMPLETED. NS AT 125 STARTED. DINNER ORDERED. CALL LIGHT IN REACH.
--- NOTE | 2020-05-25 16:30 | NUR ---
Chino lives in a trailer with 2 steps and rails. His Granddaughter assists him with shopping and transportation. He has a friend Asif who also helps him as needed. Pt complains of not being able to stand this am and having shakey legs. He called his friend Asif who brought him to the hospital. He is eating dinner and able to answer questions appropriately. Plans to return home when cleared medically. He denie wanting placement.
[2020-05-25] MEDS ORDERED: FLOVENT HFA12 G1 INH (16:44)
[2020-05-25] MEDS ORDERED: CELECOXIB200 MG PO (16:51)
[2020-05-25] MEDS ORDERED: INCRUSE ELLI62.5 MCG INH (16:52)
[2020-05-25] MEDS ORDERED: HYDROCHLOROTHIA25 MG PO (16:53)
[2020-05-25] MEDS ORDERED: VENTOLIN HFA18 GM INH (16:58)
--- NOTE | 2020-05-25 18:14 | NUR ---
MED REC COMPLETE
--- NOTE | 2020-05-25 18:54 | NUR ---
PT WITHOUT VOID SINCE ADMISSION. BLADDER SCAN SHOWED 560ML RETAINED. PT DENIED URGE TO VOID. PT TO BATHROOM WITH SBA AND FWW. VOIDED 550MLS. BACK TO BED. CALL LIGHT IN REACH.
--- NOTE | 2020-05-25 19:27 | NUR ---
BEDSIDE REPORT RECEIVED FROM RN KWASI. pt RATES PAIN 3-4/10 ALL OVER "LOWER BACK, LEGS, FEET, SHOULDERS, IT'S OKAY". NO REQUESTS AT THIS TIME. IVF INFUSING WNL ORDERED.
--- NOTE | 2020-05-25 20:12 | NUR ---
pt ASSESSMENT COMPLETE. CBG 204, SS INSULIN ADMINISTERED. ASSESSMENT COMPLETE. pt C/O 5/10 PAIN IN SHOULDERS, LOWER BACK, FEET. PRN PAIN MEDICATIONS ADMINISTERED. IV SITE FLUSHED WNL, IVF INFUSING ORDERED. CALL LIGHT IS IN REACH. ORTHOPEDIC CAST SPECIALIST NOTIFIED FOR FRUIT PER pt REQUEST.
--- NOTE | 2020-05-25 21:00 | NUR ---
MN REQUESTED FRUIT AND RECEIVED. SITTING ON EDGE OF BED, CELL PHONE NEXT TO HIM, EDUCATED ABOUT CALL LIGHT TO CALL WHEN HE NEEDS HELP. DENIED ANY OTHER NEEDS.
--- NOTE | 2020-05-25 21:45 | NUR ---
PT CALLED, REQUESTED BATHROOM. SBA, FWW, SL UNSTEADINESS NOTED. REQUESTED TO SHAVE. THIS RN STAYED IN BATHROOM WITH PT WHILE HE SHAVED. NOTED A SMALL AMOUNT OF BLOOD ON LEFT CHEEK BY LIP. PT STATED "YES THATS A PIMPLE THAT I SHAVE OVER". ASSISTED BACK TO BED, SOCKS REMOVED DUE TO WETNESS, PILLOWS ADJUSTED, PT SUPPLIES WITHIN REACH. FRESH ICE WATER, AND ICE FOR HIS DIET PEPSI GIVEN. CALL LIGHT WITHIN REACH.
--- NOTE | 2020-05-25 23:30 | NUR ---
CHECKED ON pt. RESTING IN BED WITH EYES CLOSED, SNORING. NEW BAG IVF INFUSING WNL. CALL LIGHT IS IN REACH.
--- NOTE | 2020-05-26 02:26 | NUR ---
IN pt ROOM FOR VS. pt OPENS EYES TO VOICE AND BACK TO SLEEP, SNORING. VSS. ASSESSMENT COMPLETE. IVF INFUSING WNL ORDERED. LIGHTS OFF IN ROOM. CALL LIGHT IN REACH.
--- NOTE | 2020-05-26 04:00 | NUR ---
CHECKED ON pt, RESTING IN BED SNORING. LIGHTS OFF IN ROOM.
--- NOTE | 2020-05-26 05:50 | NUR ---
ROX AND STEFFI SETHI IN ROOM. pt PULLED OWN IV SITE, URINE NOTED IN TOILET, SALINE ON FLOOR, INCONTINENCE OF URINE IN UNDERWEAR. pt BACK IN BED, LINENS AND GOWN CHANGED. NEW IV SITE RIGHT FOREARM WNL, GOOD BLOOD RETURN. IVF INFUSING ORDERED. BED ALARM SET AT THIS TIME. VSS. SCHEDULED MEDICATION ADMINSITERED, ICE WATER PROVIDED.
--- NOTE | 2020-05-26 06:18 | NUR ---
CALL LIGHT ANSWERED. SBA TO RESTROOM WITH FWW. VERBALIZES UNDERSTANDING TO USE CALL LIGHT WHEN FINISHED.
--- NOTE | 2020-05-26 08:38 | NUR ---
Oxycodone 5mg po admin for reports of ongoing 5/10 back pain.
--- NOTE | 2020-05-26 09:40 | NUR ---
Met with patient this morning regarding his care. Pt verbalizes that he is comfortable with the care being given, he feels like his needs are being met, and that staff members are taking care of him in a timely manner. He also verbalizes that he has the ability to purchase his food and medications upon returning home, and that this is not a concern for him.
[2020-05-26] MEDS ORDERED: OXYCODONE HCL5 MG PO (10:41)
--- NOTE | 2020-05-26 11:03 | NUR ---
Spoke with Davonte from [facility]. I faxed rx, dc summary, and face sheet. Pt request no to meg angel.Pt also states if there is a copay, he has the money to pay.
--- NOTE | 2020-05-26 11:09 | NUR ---
v/s and I&Os done and recorded. no other needs at this time. call light with in reach
[2020-05-26] MEDS ORDERED: TRAZODONE HCL100 MG PO (11:39)
== END 2020-05-26 12:55 | disposition home or self-care (01) ==
LOC: ED 11:04 → MS 11:07
PROVIDERS: ADMIT Internal Medicine; ATTEND Internal Medicine
DX: N17.0 Acute kidney failure with tubular necrosis (principal); N14.0 Analgesic nephropathy; T39.315A Adverse effect of propionic acid derivatives, initial encounter; G89.4 Chronic pain syndrome; E11.9 Type 2 diabetes mellitus without complications; I10 Essential (primary) hypertension; J43.9 Emphysema, unspecified; J45.909 Unspecified asthma, uncomplicated; M54.30 Sciatica, unspecified side; R26.89 Other abnormalities of gait and mobility; Z87.891 Personal history of nicotine dependence; Z95.2 Presence of prosthetic heart valve; Z79.1 Long term (current) use of non-steroidal anti-inflammatories (NSAID); E87.1 Hypo-osmolality and hyponatremia; Z20.822 Contact with and (suspected) exposure to COVID-19
CPT/HCPCS: 80048; 85025; 96374; 96375; 97163; 99284-25; C9803; G0378; J1100; J1815; J1885; J7030; U0003

== ENCOUNTER 2020-07-26 20:25 | Emergency (ER) | payer MEDICARE, OTHER ==
[~2020-07-26] VITALS: Ht 175.3 cm; Wt 114.8 kg
[~2020-07-26 20:25] MED LIST changes: +CELECOXIB200 MG PO; +FLOVENT HFA12 G1 INH; +HYDROCHLOROTHIA25 MG PO; +INCRUSE ELLI62.5 MCG INH; +MONTELUKAST SOD10 MG PO; +OXYCODONE HCL5 MG PO; +TRAZODONE HCL100 MG PO
--- OUTSIDE RECORDS SUMMARY | 2020-07-26 20:28 | XMS ---
PreManage Notification: CHUY RIVERA Security Machine Burrer Events No recent Security Events currently on file CRITERIA MET - Group Notification - [facility] - Has Care Guidelines - PDMP CARE PROVIDERS GRAEME ARANA Internal Medicine 08/08/2018-Current PHONE: [phone] Gerardo has no Care Guidelines for this patient. Care History Medical/Surgical 05/26/2020 [facility] Patient admitted - high doses of ibuprofen for back pain. 06/23/2019 [facility] Patient admitted. Has follow up with Dr. Arana on 06/24/2019 08/08/2018 [facility] - CHW RECEIVED CASE MANAGEMENT REFERRAL AND ED CASE MANAGEMENT CONSULT- PATIENT IS A CLINIC PATIENT AND REFERRAL WAS PROVIDED TO NAVEEN FOR FURTHER FOLLOW UP. - Patient is currently established with [facility]. If patient is seen in the ED during business hours. Please contact CHWs at [facility]. Care Recommendation: This patient has had 5 [...] care. E.D. VISIT COUNT (12 MO.) 1 [facility] 2 [facility] TOTAL 3 NOTE: Visits indicate total known visits. ED/UCC VISIT TRACKING (12 MO.) 07/26/2020 20:26 [facility] [place]: Emergency COMPLAINT: - VOMITING 05/25/2020 11:06 [facility] [place] TYPE: Emergency COMPLAINT: - UNABLE TO WALK, LOW B/P 11/29/2019 12:03 [facility] [place] TYPE: Emergency DIAGNOSES: - Lumbago with sciatica, left side - LOWER BACK LEFT HIP AND KNEE PAIN INPATIENT VISIT TRACKING (12 MO.) 05/25/2020 11:07 [facility] [place] TYPE: Observation COMPLAINT: - GAIT INSTABILITY DIAGNOSES: - Hypo-osmolality and hyponatremia - Emphysema, unspecified - Presence of prosthetic heart valve - Sciatica, unspecified side - Essential (primary) hypertension - Analgesic nephropathy - Personal history of nicotine dependence - Chronic pain syndrome - Acute kidney failure with tubular necrosis - senior care (current) use of non-steroidal anti-inflammatories (NSAID) - Type 2 diabetes mellitus without complications - Other abnormalities of gait and mobility - Adverse effect of propionic acid derivatives, initial encounter - Unspecified asthma, uncomplicated [email or web address]
== END 2020-07-26 23:43 | disposition home or self-care (01) ==
LOC: ED 20:25
DX: R11.2 Nausea with vomiting, unspecified (principal); E11.9 Type 2 diabetes mellitus without complications; I10 Essential (primary) hypertension; J45.909 Unspecified asthma, uncomplicated; Z87.891 Personal history of nicotine dependence; Z79.899 Other long term (current) drug therapy; Z79.82 Long term (current) use of aspirin
CPT/HCPCS: 80053; 81001; 83690; 83735; 85025; 96374; 99284-25; J2405; J7030

== ENCOUNTER 2020-09-16 19:16 | Emergency (ER) | payer MEDICARE, OTHER ==
[~2020-09-16] VITALS: Ht 175.3 cm; Wt 114.8 kg
--- OUTSIDE RECORDS SUMMARY | 2020-09-16 19:20 | XMS ---
PreManage Notification: CHUY RIVERA Security Burial Agent Events No recent Security Events currently on file CRITERIA MET - Group Notification - [facility] - Has Care Guidelines - PDMP CARE PROVIDERS GRAEME ARANA Internal Medicine 08/08/2018-Current PHONE: [phone] Gerardo has no Care Guidelines for this patient. Care History Medical/Surgical 05/26/2020 [facility] Patient admitted - high doses of ibuprofen for back pain. 06/23/2019 [facility] Patient admitted. Has follow up with Dr. Arana on 06/24/2019 08/08/2018 [facility] - CHW RECEIVED CASE MANAGEMENT REFERRAL AND ED CASE MANAGEMENT CONSULT- PATIENT IS A CLINIC PATIENT AND REFERRAL WAS PROVIDED TO NAVEEN FOR FURTHER FOLLOW UP. - Patient is currently established with [facility]. If patient is seen in the ED during business hours. Please contact CHWs at [facility]. Care Recommendation: This patient has had [...] E.D. VISIT COUNT (12 MO.) 1 [facility] 3 [facility] Card[facility] TOTAL 4 NOTE: Visits indicate total known visits. 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
--- NOTE | 2020-09-17 11:40 | EKG ---
[facility] [address] [place] [address] Signed Sinus rhythm with 1st degree AV block Otherwise normal ECG When compared with ECG of 20-JUN-2019 08:42, premature ventricular complexes are no longer present UT interval has increased Vent. rate has decreased BY 51 BPM Confirmed by TERESITA MALONE DO ([id number]) on 09/17/2020 11:40:04 AM Electronically Signed By: TERESITA MALONE DO 09/17/20 1140 PATIENT NAME: CHUY RIVERA Electrocardiogram DATE OF : 43 PHYSICIAN: TERESITA MALONE DO REPORT #: [id number] REPORT IS CONFIDENTIAL AND NOT TO BE RELEASED WITHOUT AUTHORIZATION
== END 2020-09-16 23:31 | disposition home or self-care (01) ==
LOC: ED 19:16
DX: R53.1 Weakness (principal); M54.2 Cervicalgia; R51.9 Headache, unspecified; W19.XXXA Unspecified fall, initial encounter; G89.29 Other chronic pain; M54.5 Low back pain; I44.0 Atrioventricular block, first degree; E11.9 Type 2 diabetes mellitus without complications; I10 Essential (primary) hypertension; J45.909 Unspecified asthma, uncomplicated; Z79.899 Other long term (current) drug therapy; Z79.82 Long term (current) use of aspirin; Z96.642 Presence of left artificial hip joint; Z96.651 Presence of right artificial knee joint; Z95.2 Presence of prosthetic heart valve
CPT/HCPCS: 51798; 70450; 70486; 71045; 72125; 80053; 81001; 84484; 85025; 85610; 85730; 93005; 93010; 99285-25

== ENCOUNTER 2021-01-27 18:56 | Emergency (ER) | payer MEDICARE, OTHER ==
[~2021-01-27] VITALS: Ht 175.3 cm; Wt 113.4 kg
--- OUTSIDE RECORDS SUMMARY | 2021-01-27 18:58 | XMS ---
PreManage Notification: CHUY RIVERA Security Goldbeater Events No recent Security Events currently on file CRITERIA MET - [facility] - Has Care Guidelines - Group Notification - PDMP CARE PROVIDERS GRAEME ARANA Internal Medicine 09/20/2020-Current PHONE: [phone] Gerardo has no Care Guidelines for this patient. Care History Medical/Surgical 05/26/2020 [facility] Patient admitted - high doses of ibuprofen for back pain. 06/23/2019 [facility] Patient admitted. Has follow up with Dr. Arana on 06/24/2019 08/08/2018 [facility] - CHW RECEIVED CASE MANAGEMENT REFERRAL AND ED CASE MANAGEMENT CONSULT- PATIENT IS A CLINIC PATIENT AND REFERRAL WAS PROVIDED TO NAVEEN FOR FURTHER FOLLOW UP. - Patient is currently established with [facility]. If patient is seen in the ED during business hours. Please contact CHWs at [facility]. Care Recommendation: This patient has had [...] care. E.D. VISIT COUNT (12 MO.) [address] [facility] TOTAL 4 NOTE: Visits indicate total known visits. ED/UCC VISIT TRACKING (12 MO.) 01/27/2021 18:56 [facility] [place] TYPE: Emergency COMPLAINT: - BLOOD PRESSURE PROBLEM 09/16/2020 19:18 [facility] [place] TYPE: Emergency COMPLAINT: - WEAK DIAGNOSES: - salvage determiner (current) use of aspirin - Headache, unspecified - Presence of right artificial knee joint - Type 2 diabetes mellitus without complications - Essential (primary) hypertension - Unspecified fall, initial encounter - Low back pain - Other chronic pain - Presence of left artificial hip joint - Other meterman (current) drug therapy - Atrioventricular block, first degree - Unspecified asthma, uncomplicated - Cervicalgia - Weakness - Presence of prosthetic heart valve 07/26/2020 20:26 [facility] [place] TYPE: Emergency COMPLAINT: - VOMITING DIAGNOSES: - Personal history of nicotine dependence - Other meterman (current) drug therapy - Nausea with vomiting, unspecified - Type 2 diabetes mellitus without complications - Unspecified asthma, uncomplicated - Essential (primary) hypertension - salvage determiner (current) use of aspirin 05/25/2020 11:06 [facility] [place] TYPE: Emergency COMPLAINT: - UNABLE TO WALK, LOW B/P INPATIENT VISIT TRACKING (12 MO.) 05/25/2020 11:07 [facility] [place] TYPE: Observation COMPLAINT: - GAIT INSTABILITY DIAGNOSES: - Hypo-osmolality and hyponatremia - Emphysema, unspecified - Presence of prosthetic heart valve - Sciatica, unspecified side - Essential (primary) hypertension - Analgesic nephropathy - Personal history of nicotine dependence - Chronic pain syndrome - Acute kidney failure with tubular necrosis - salvage determiner (current) use of non-steroidal anti-inflammatories (NSAID) - Type 2 diabetes mellitus without complications - Other abnormalities of gait and mobility - Adverse effect of propionic acid derivatives, initial encounter - Unspecified asthma, uncomplicated [email or web address]
[2021-01-27] MEDS ORDERED: HYDROCHLOROTH12.5 MG PO (20:03)
[2021-01-27] MEDS ORDERED: AMLODIPINE BESYL5 MG PO (23:57)
== END 2021-01-28 00:16 | disposition home or self-care (01) ==
LOC: ED 18:56
DX: I10 Essential (primary) hypertension (principal); E11.9 Type 2 diabetes mellitus without complications; J45.909 Unspecified asthma, uncomplicated; Z79.899 Other long term (current) drug therapy; Z79.82 Long term (current) use of aspirin
CPT/HCPCS: 71045; 80053; 84484; 85025; 96374; 99283-25

== ENCOUNTER 2021-03-27 09:33 | Inpatient (IN) | payer MEDICARE, OTHER ==
[~2021-03-27] VITALS: Ht 175.3 cm; Wt 112.7 kg
[~2021-03-27 09:33] MED LIST changes: +HYDROCHLOROTH12.5 MG PO
--- OUTSIDE RECORDS SUMMARY | 2021-03-27 09:36 | XMS ---
PreManage Notification: CHUY RIVERA Security Deck Scaler Events No recent Security Events currently on file CRITERIA MET - Group Notification - [facility] - Has Care Guidelines CARE PROVIDERS GRAEME ARANA Internal Medicine 09/20/2020-Current PHONE: [phone] Guidelines Source: [facility] Guidelines Date: 01/31/2021 Other Information: Per [employer], next scheduled visit with PCP is 02/24/2021. Care History Medical/Surgical 05/26/2020 [facility] Patient admitted - high doses of ibuprofen for back pain. 06/23/2019 [facility] Patient admitted. Has follow up with Dr. Arana on 06/24/2019 08/08/2018 [facility] - CHW RECEIVED CASE MANAGEMENT REFERRAL AND ED CASE MANAGEMENT CONSULT- PATIENT IS A CLINIC PATIENT AND REFERRAL WAS PROVIDED TO NAVEEN FOR FURTHER FOLLOW UP. - Patient is currently established with [facility]. If patient is seen in the ED during business hours. Please contact CHWs at [facility]. Care Recommendation: This patient has [...] providing care. E.D. VISIT COUNT (12 MO.) [address] [facility] TOTAL 5 NOTE: Visits indicate total known visits. 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 - Type 2 diabetes mellitus without complications - Essential (primary) hypertension - Other termite technician (current) drug therapy 09/16/2020 19:18 [facility] [place] TYPE: Emergency COMPLAINT: - WEAK DIAGNOSES: - MCFP (current) use of aspirin - Headache, unspecified - Presence of right artificial knee joint - Type 2 diabetes mellitus without complications - Essential (primary) hypertension - Unspecified fall, initial encounter - Low back pain - Other chronic pain - Presence of left artificial hip joint - Other termite technician (current) drug therapy - Atrioventricular block, first degree - Unspecified asthma, uncomplicated - Cervicalgia - Weakness - Presence of prosthetic heart valve 07/26/2020 20:26 [facility] [place] TYPE: Emergency COMPLAINT: - VOMITING DIAGNOSES: - Personal history of nicotine dependence - Other termite technician (current) drug therapy - Nausea with vomiting, unspecified - Type 2 diabetes mellitus without complications - Unspecified asthma, uncomplicated - Essential (primary) hypertension - MCFP (current) use of aspirin 05/25/2020 11:06 [facility] [place] TYPE: Emergency COMPLAINT: - UNABLE TO WALK, LOW B/P INPATIENT VISIT TRACKING (12 MO.) [facility] DIAGNOSES: - Disease of spinal cord, unspecified - Other symptoms and signs involving the nervous system - Spinal stenosis, lumbar region without neurogenic claudication - Other symptoms and signs involving the musculoskeletal system - Other intervertebral disc degeneration, lumbar region - Radiculopathy, lumbar region - Spinal stenosis, lumbar region with neurogenic claudication - Spondylosis without myelopathy or radiculopathy, lumbar region - Other intervertebral disc displacement, lumbar region 05/25/2020 11:07 [facility] [place] TYPE: Observation COMPLAINT: - GAIT INSTABILITY DIAGNOSES: - Hypo-osmolality and hyponatremia - Emphysema, unspecified - Presence of prosthetic heart valve - Sciatica, unspecified side - Essential (primary) hypertension - Analgesic nephropathy - Personal history of nicotine dependence - Chronic pain syndrome - Acute kidney failure with tubular necrosis - MCFP (current) use of non-steroidal anti-inflammatories (NSAID) - Type 2 diabetes mellitus without complications - Other abnormalities of gait and mobility - Adverse effect of propionic acid derivatives, initial encounter - Unspecified asthma, uncomplicated [email or web address]
--- NOTE | 2021-03-27 13:02 | NUR ---
PATIENT ARRIVED TO [facility], 4 PEOPLE TO TRANSFER TO BED. PATIENT ATTENDS PLACED, APPEARED TO HAVE BEEN INCONTINENT OF URINE ONCE. PATIENT DID MUMBLE ABOUT HAVING PAIN UPON ROLLING, IMMEDIATELY FELL ASLEEP. VITALS ARE STABLE, 100% ON ROOM AIR.
--- NOTE | 2021-03-27 13:30 | NUR ---
PT RESTING SAFELY IN THE BED W/ CALL LIGHT IN REACH, PT VERY SOMNOLENT, WILL OPEN EYES WHEN SPOKEN TOO BUT UNABLE TO ANSWER QUESTION AND FALL RIGHT BACK ASLEEP.
[2021-03-27] MEDS ORDERED: AMLODIPINE BESY10 MG PO (14:21)
[2021-03-27] MEDS ORDERED: ATORVASTATIN CA40 MG PO (14:22)
[2021-03-27] MEDS ORDERED: HYDROCODON-ACE1 EAC8 PO (14:24)
--- NOTE | 2021-03-27 15:00 | NUR ---
PT RESTING IN BED SAFELY W/ CALL LIGHT IN REACH. PT REMAINS SONMOLENT, BUT AWAKENS TO VOIVE, UNABLE TO FOLLOW COMMANDS
--- NOTE | 2021-03-27 17:31 | NUR ---
PT RESTING IN BED SAFELY W/ CALL LIGHT IN REACH AND EYES CLOSED, RR EVEN AND UNLABORED ON CPAP
--- NOTE | 2021-03-27 19:12 | NUR ---
TO ROOM 129 VIA STRETCHER WITH RN AND APPLE SORTER HELPING. PATIENT TALKING ON ROOM AIR. ORIENTED TO PLACE. DAY SHIFT RN FROM MED/SURG GIVING REPORT TO HOME APPRAISER CCU NURSES. RT CONNECTED AND STARTED BIPAP 30%FIO2,
--- NOTE | 2021-03-27 20:06 | NUR ---
PATIENT AGRESSIVELY TOOK OFF NIV AND REFUSED TO PUT BACK ON. HE THEN TOOK OFF OXIMETER AND STARTED TO PULL OUT IV. I WAS ABLE TO STOP HIM AND NOTIFIED RN. PATIENT STATES HE WAMTS TO GO HOME. HE WAS UNABLE TO TELL ME THE YEAR HE THOUGHT IT WAS 2022. COULD NOT TELL ME MONTH OR DAY.
--- NOTE | 2021-03-27 20:26 | NUR ---
PATIENT AWAKE, REFUSING CPAP. ORIENTED TO SELF AND SURROUNDINGS ONLY. PATIENT REQUEST PRN PAIN MEDS FOR HIS BACK, 6/10 PAIN AND IS WANTING TO DRINK SOMETHING. PATIENT FRUSTERATED WITH STAFF AND ATTEMPTING TO PULL HIS IV AND BEAUCHAMP CATH, STATES "I'M CALLING IVONNE, I'M GOING HOME." THIS RN SPOKE TO IVONNE AND THEN PATIENT DID WELL, PATIENT AGREEABLE TO STAYING FOR TREATMENT OVERNIGHT. IVONNE PROVIDED WITH FULL UPDATE.
--- NOTE | 2021-03-27 20:30 | NUR ---
UPDATED. PATIENT PROVIDED WITH SCHEDULED AND PRN PAIN MEDS. ICE PACKS APPLIED TO BOTH HIPS DUE TO "BURNING" PAIN. HIPS ALSO FLOATED. NO SIGN OF INJURY IN THESE AREAS. PATIENT VS STABLE. URINE CONTINUES TO BE TEA COLORED, DARK BROWN. IV FLUIDS PER ORDER, SITE WNL. PATIENT ENCOURAGED TO COUGH AND DEEP BREATH. HE HAS AN OCCATIONAL MOIST COUGH. LUNG SOUNDS ARE CLEAR IN THE UPPERS, DIM IN THE BASES.
--- NOTE | 2021-03-27 22:00 | NUR ---
PATIENT RESTING WITH EYES CLOSED. WAKES EASILY WHEN RN ENTERS ROOM. VS STABLE. URINE IS WEFT STRAIGHTENER BROWN COLOR IN BEAUCHAMP TUBING, OUTPUT GOAL MET AT THIS TIME. PATIENT HAS BEEN TAKING PO FLUIDS AND IV FLUIDS CONTINUE PER ORDER. CALL LIGHT IN REACH.
--- NOTE | 2021-03-28 00:30 | NUR ---
PATIENT DESATING TO LOW 70% OCCATIONALLY WHILE SLEEPING. APPEARS TO HAVE SLEEP APNEA. PATIENT REFUSES CPAP, ALLOWED NASAL CANULA. STARTED WITH 2L AND TITRATED TO 4L. REPOSITIONED PATIENT UP IN BED. HOB ELEVATED AND PILLOWS ADJUSTED TO KEEP HEAD FROM FALLING FORWARD. PATING REPORTS PAIN, PRN OXY PROVIDED. OUTPUT CONTINUES TO BE CLOSE TO GOAL OF 115 ML/HR, AVERAGING 105 ML/HR. VS STABLE. PATIENT CONTINUES TO SHARE DISLIKE FOR BEING IN THE HOSPITAL AND STATES "I'D BE BETTER OFF AT HOME" BECAUSE OF HIS RECLINER AT HOME. ENCOURAGED PATIENT TO REST AND DISCUSSED OPTION OF MOVING TO A RECLINER FOR BREAKFAST.
--- NOTE | 2021-03-28 02:14 | NUR ---
patient woke breifly when RN in room. denied any needs, is calm and appropriate. Scheduled meds provided. VS stable. iv fluids per order, site wnl.
--- NOTE | 2021-03-28 03:39 | NUR ---
PATIENT DOING WELL ON 4L NC, NO DESATS LOWER THAN 88% WHILE SLEEPING. TITRATED TO 3L NC AT 0230. PATIENT HAD AN APNIC EPISODE AT THIS TIME AND DESAT TO 67%. RN ENTERED ROOM AND WOKE PATIENT, TITRATED TO 4L. PATIENT RECOVERED QUICKLY. FEEL BACK TO SLEEP IMMEDIATELY. WHEN WOKE AGAIN PATIENT AGITATED BUT ORIENTED TO SELF AND SURROUNDINGS.
--- NOTE | 2021-03-28 05:37 | NUR ---
UPDATE PROVIDED TO . ORDER TO DECREASE IV FLUIDS TO 200 ML/HR.
--- NOTE | 2021-03-28 06:15 | NUR ---
PATIENT REPOSITIONED TO LEFT SIDE. REPORTS PAIN WITH MOVEMENT. FALLS ASLEEP AGAIN QUICKLY. VS STABLE. SCHEDULED MEDS PROVIDED. NEW BAG LR STARTED AT 200 ML/HR. IV SITE WNL. PATIENT ENCOURAGE TO COUGH AND DEEP BREATH. HAS A CONGESTED SOUNDING COUGH, NO SPUTUM.
--- NOTE | 2021-03-28 07:34 | NUR ---
REPORT RECEIVED FROM NIGHTSHIFT RN, WILL CONTINUE PLAN OF CARE.
--- NOTE | 2021-03-28 08:15 | NUR ---
PT LAYING IN BED SLEEPING AND AWOKE EASILY. PT WAS ORIENTED TO SELF AND LOCATION BUT NOT EVENT OR YEAR. VITALS TAKEN AT THIS TIME AND PT ASSESSED. LUNGS COARSE IN UPPER LOBES BILATERALLY AND COARSE/DIMINISHED IN LOWER LOBES BILATERALLY. PT DENIES HAVING SHORTNESS OF BREATH, SPO2 93% ON 4L O2 NC. BOWEL TONES ACTIVE, PT HAS STRONG RADIAL AND PEDAL PULSES, +2 EDEMA PRESENT ON FEET. PT REPORTS BASELINE NUMBNESS AND TINGLING IN HANDS AND FEET. PT ALSO REPORTS 8/10 BACK PAIN AT THIST TIME. SCHEDULED MEDICATIONS ADMINISTERED ALONG WITH PRN OXYCODONE (SEE MAR), INSULIN HELD PER SLIDING SCALE. PT PROVIDED WITH ICE WATER AT THIS TIME, IVF INFUSING AT ORDERED RATE. BEAUCHAMP EMPTIED OF DARK/YELLOW URINE. PT REPORTS NO FURTHER NEEDS AT THIS TIME, WILL CONTINUE PLAN OF CARE. CALL LIGHT IN REACH, BED IN LOWEST POSITION.
--- NOTE | 2021-03-28 09:00 | NUR ---
PATIENT SET UP FOR BREAKFAST, PATIENT DENIES NEED FOR ASSISTANCE. CALL LIGHT IN REACH. VISITOR IN ROOM AT THIS TIME.
--- NOTE | 2021-03-28 09:20 | NUR ---
PT IN ROOM AWAKE EATING HIS BREAKFAST, PT'S FRIEND IN THE ROOM. PT ON 4L O2 NC, SPO2 99%. PT REPORTS BEING FINISHED WITH HIS BREAKFAST AFTER MEASURING AND EMPTYING BEAUCHAMP. PT REPORTS WANTING TO BE REPOSITIONED TOWARDS HIS LEFT SIDE, ROX BEST ASSISTED THIS RN IN REPOSITIONING PT. PT NASAL CANNULA READJUSTED, PT STATES IT WAS "BROKEN" AND STATED IT WAS NOT WORKING, PT PLACED ON 4L O2 OXYMASK FOR COMFORT, SPO2 STILL 99%. PT REPORTS NO FURTHER NEEDS AT THIS TIME WHEN ASKED AND IS NOW RESTING IN BED, IVF INFUSING AT ORDERED RATE. CALL LIGHT IN REACH, BED IN LOWEST POSITION, WILL CONTINUE PLAN OF CARE.
--- NOTE | 2021-03-28 10:00 | NUR ---
INTO ROOM TO SEE PATIENT. PATIENT LYING IN BED WATCHING TV. PATIENT STATES HE CURRENTLY LIVES IN A TRA[place]ER [place] PATIENT STATES HE HAS A FRIEND WHO LIVES IN THE [place]ARK WHO IS ABLE TO HELP HIM WITH TRANSFER KNITTER AND MEAL PREP. PATIENT STATES HE HAS SEVERAL FRIEND WHO CHECK ON HIM THROUGH OUT THE DAY. PATIENT DOES USE A WALKER FOR LONG DISTANCE WALKING. HE DID NOT REQUIRE HOME O2 PRIOR TO HIS VISIT. PATIENT DECLINES FANCIAL ISSUES AT THIS TIME. PATIENT STATES HE DOES RECV [facility] AND IS ESTABLISHED WITH DR. MASON, WELL WITH DR. ARANA. PATIENT STATES HE FEEL SAFE DISCHARGING TO HOME WHEN STABLE. WILL CONTINUE TO F/U WITH PATIENT DURING HIS VISIT.
--- NOTE | 2021-03-28 10:16 | NUR ---
PT LAYING IN BED AWAKE ON 4L O2 OXYMASK, SPO2 99%. VITALS TAKEN AT THIS TIME AND SCHEDULED MEDICATION ADMINISTERED (SEE MAR). PT REPORTS DISCOMFORT IN HIS BACK AND REPORTS WANTING ICE PACKS. TURNED TOWARD HIS LEFT SIDE AT THIS TIME AND ICE PACKS PLACED IN LOWER BACK. PT STATES HE IS MORE COMFORTABLE NOW AT THIS TIME. PT REPORTS NO FURTHER NEEDS WHEN ASKED, WILL CONTINUE PLAN OF CARE. CALL LIGHT IN REACH, BED IN LOWEST POSITION, IVF INFUSING ORDERED.
--- NOTE | 2021-03-28 11:58 | NUR ---
DR. OLGUIN IN TO ASSESS PT AND UPDATE ON PLAN OF CARE. PT LAYING IN BED ALERT AND ORIENTED TO SELF, LOCATION, AND EVENT. PT PAINFUL WHEN ATTEMPTING TO SIT UP ON SIDE OF BED AND WAS ASSISTED BY THIS RN AND DR. OLGUIN. INCISION SITE VISUALIZED AND IS C/D/I WITH BRUISING PRESENT BELOW SITE. PRN PAIN MEDICATION ADMINISTERED AFTERWARDS FOR 9/10 PAIN IN LOWER BACK, NEW BAG OF IVF STARTED AT SAME RATE, CBG ASSESSED AND WAS 144, WILL ADMINISTER 1 UNIT PER SLIDING SCALE WHEN LUNCH ARRIVES. PT REPORTS NO FURTHER NEEDS AT THIS TIME WHEN ASKED AND IS RESTING IN BED ON ROOM AIR, SPO2 96%, WILL CONTINUE PLAN OF CARE.
--- NOTE | 2021-03-28 12:18 | NUR ---
PT LAYING IN BED AWAKE ON ROOM AIR, SPO2 96%. VITALS TAKEN AT THIS TIME AND SCHEDULED MEDICATIONS ADMINISTERED (SEE MAR). SS INSULIN TO BE GIVEN WITH LUNCH. PT ASSESSED AT THIS TIME, LUNGS COARSE IN UPPER LOBES BILATERALLY AND DIMINISHED/COARSE IN THE BASES BILATERALLY. PT DENIES FEELING SHORT OF BREATH WHEN ASKED. BOWEL TONES ACTIVE, RADIAL AND PEDAL PULSES STRONG, +2 EDEMA PRESENT IN LOWER LEGS AND FEET. PT REPORTS NO FURTHER NEEDS AT THIS TIME WHEN ASKED, IVF INFUSING ORDERED, CALL LIGHT IN REACH, BED IN LOWEST POSITION, WILL CONTINUE PLAN OF CARE.
[2021-03-28] MEDS ORDERED: METFORMIN HCL500 MG PO (13:23)
[2021-03-28] MEDS ORDERED: POTASSIUM CHLO10 ME2 PO (13:26)
[2021-03-28] MEDS ORDERED: BACLOFEN10 MG PO (13:28)
[2021-03-28] MEDS ORDERED: CELEBREX200 MG PO (13:29)
[2021-03-28] MEDS ORDERED: ULTRAM50 MG PO (13:34)
[2021-03-28] MEDS ORDERED: NARCAN4 MG NAS (13:35)
[2021-03-28] MEDS ORDERED: ALBUTEROL2.5 MG/3 M NEB (13:38)
[2021-03-28] MEDS ORDERED: CEROVITE SENIO1 EACH PO (13:39)
[2021-03-28] MEDS ORDERED: DOCUSATE SODIU100 M1 PO (13:41)
--- NOTE | 2021-03-28 13:41 | NUR ---
PT LAYING IN BED AWAKE AND ALERT. PT REPORTS NO NEEDS AT THIS TIME WHEN ASKED. THIS RN AND RN CROW ASSISTED PT IN MOVING ONTO HIS RIGHT SIDE, ICE PACK APPLIED TO BACK PER HIS REQUEST. PT STILL ON ROOM AIR, SPO2 93-99%. PT REPORTS NO FURTHER NEEDS AT THIS TIME WHEN ASKED, WILL CONTINUE PLAN OF CARE. CALL LIGHT IN REACH, BED IN LOWEST POSITION, IVF INFUSING ORDERED.
[2021-03-28] MEDS ORDERED: ACETAMINOPHEN325 M1 PO (13:43)
--- NOTE | 2021-03-28 13:47 | NUR ---
MED REC COMPLETED BY PHARMACY
--- NOTE | 2021-03-28 14:32 | NUR ---
PATIENT AWAKE IN BED, VITALS AND I@OS CHARTED. BEAUCHAMP EMPTIED. CALL LIGHT AND EPRSONAL ITEMS IN EASY REACH
--- NOTE | 2021-03-28 15:22 | NUR ---
PT AWAKE AND ALERT LAYING IN BED AT THIS TIME, DINNER ORDER TAKEN AT THIS TIME AND SCHEDULED MEDICATION ADMINISTERED (SEE MAR). PT ON ROOM AIR AT THIS TIME AND DENIES SHORTNESS OF BREATH WHEN ASKED. IVF INFUSING ORDERED. BEAUCHAMP STILL DRAINING CLEAR YELLOW URINE THAT IS NOW LIGHT THAN BEFORE. PT REPORTS NO NEEDS AT THIS TIME WHEN ASKED, PHYSICAL THERAPIST AND P.T STUDENT IN ROOM AT THIS TIME TO WORK WITH PT, WILL CONTINUE PLAN OF CARE.
--- NOTE | 2021-03-28 15:55 | NUR ---
THIS RN IN TO ASSIST PHYSICAL THERAPIST. PT STATED HE COULD NOT PHYSICALLY SIT UP. PT WAS AGITATED ABOUT DOING PHYSICAL THERAPY AND STATED THE PHYSICAL THERAPIST COULD "NOT UNDERSTAND HIM AND HE WANTED ONE WHO SPOKE CITIZEN OF [place]" PT THEN ASKED FOR A "WHITE PHYSICAL THERAPIST". PT WAS WILLING TO DO PHYSICAL THERAPY FOR THE DAY IF HE GOT A "WHITE PHSYICAL THERAPIST TOMORROW". PT WORKED WITH PT TO SIT HIM UP ON THE SIDE OF THE BED AND HAVE HIM STAND WITH A WALKER FOR A MINUTE. LINENS CHANGED AT THIS TIME AND PT ASSISTED BACK INTO BED BY THE PHYSICAL THERAPISTS AND THIS RN. PILLOWS PLACED AROUND PT FOR COMFORT. EKG LEADS REPLACED AT THIS TIME. PT REPORTS NO FURTHER NEEDS AT THIS TIME WHEN ASKED, RT NOW IN ROOM TO ASSES PT AND GIVE A NEB TREATMENT, WILL CONTINUE PLAN OF CARE.
--- NOTE | 2021-03-28 16:20 | NUR ---
RT FINISHED DOING SCHEDULED NEB TREATMENT. PT AWAKE AND ALERT ON ROOM AIR LAYING IN BED, SPO2 95%. PT COMPLAINED OF BACK PAIN STATING IT WORESENED AFTER PHYSICAL THERAPY AND RATED IT A 9-10/10. PRN OXYCODONE ADMINISTERED AT THIS TIME FOR PAIN. PT VITALS TAKEN AT THIS TIME AND PT ASSESSED (SEE CHART). PT DENIES SHORTNESS OF BREATH WHEN ASKED. PT REPORTS NO FURTHER NEEDS WHEN ASKED, WILL CONTINUE PLAN OF CARE. CALL LIGHT IN REACH, BED IN LOWEST POSITION, IVF INFUSING AT ORDERED RATE.
--- NOTE | 2021-03-28 16:41 | NUR ---
PT LAYING IN BED AWAKE AND ALERT ON ROOM AIR, SPO2 96%, IVF INFUSING AT ORDERED RATE. PT REPORTS NO FURTHER NEEDS AT THIS TIME WHEN ASKED. AFTER CHECKING ON PT HE STATED THAT HE DID NOT "WANT TO SEE EITHER OF THOSE TWO GIRLS COMING BACK IN HERE TOMORROW TO TRY AND DO PHYSICAL THERAPY" REFERRING TO THE PHYSICAL THERAPIST AND THE STUDENT. PT STATED THAT HE WOULD "[facility]" IF HE SAW THEM AGAIN OR TRIED TO WORK WITH HIM AGAIN. PT STATED HE WAS NOT SUPPOSED TO DO PHYSICAL THERAPY ACCORDING TO HIS DOCTOR AND MULITIPLE OTHER SOURCES HE HAD CONTACTED WHILE THIS RN WAS OUT OF THE ROOM. PT REPORTED NO FURTHER NEEDS AFTERWARDS WHEN ASKED. CALL LIGHT IN REACH, BED IN LOWEST POSITION, IVF INFUSING ORDERED, BEAUCHAMP DRAINING CLEAR YELLOW URINE, WILL CONTINUE PLAN OF CARE.
--- NOTE | 2021-03-28 17:26 | NUR ---
PT LAYING IN BED RESTING AT THIS TIME ON ROOM AIR. PT AWAKE AND ALERT AT THIS TIME. NEW BAG OF LR STARTED AT THIS TIME AT ORDERED RATE. CBG ASSESSED AND WAS 121, INSULIN HELD PER SLIDING SCALE. PT NOW EATING DINNER AND REPORTS NO FURTHER NEEDS WHEN ASKED, CALL LIGHT IN REACH, BED IN LOWEST POSITION, WILL CONTINUE PLAN OF CARE.
--- NOTE | 2021-03-28 18:46 | NUR ---
PT LAYING IN BED AT THIS TIME AND WAS PUT ON 1L O2 DUE TO BRIEFLY DESATURING DOWN TO THE 87-89 RANGE AT TIMES WHILE SLEEPING. PT AWOKE EASILY AND WAS ALERT. PT DENIED ANY SHORTNESS OF BREATH WHEN ASKED BEFORE BEING PUT ON THE 1L OXYMASK. PT REPORTS NO FURTHER NEEDS AT THIS TIME, WILL CONTINUE PLAN OF CARE. IVF INFUSING ORDERED, BEAUCHAMP DRAINING, CALL LIGHT IN REACH.
--- NOTE | 2021-03-28 19:30 | NUR ---
PATIENT REPORT RECIEVED FROM STEFFI PIERRE. PATIENT IS RESTING IN BED. PATIENT BREATHING IS EQUAL AND UNLABORED. CALL LIGHT WITHIN REACH NO FUTHER NEEDS.
--- NOTE | 2021-03-28 22:20 | NUR ---
PATIENT DESAT TO 80% WHILE SLEEPING. OXY MASK APPLIED AT 6 LITERS. OXYGEN SATURATIONS NOW WNL.
--- NOTE | 2021-03-28 22:49 | NUR ---
PATIENT REPOSITIONED TO HIS RIGHT SIDE. CALL LIGHT WITHIN REACH NO FUTHER NEEDS.
--- NOTE | 2021-03-28 23:51 | NUR ---
PATIENT ASSESSMENT COMPLETE. PATIENT IS RESTING IN BED. DISORIENTED TO TIME, EVENT, AND PLACE. PATIENT LUNG SOUNDS ARE COURSE THROUGHOUT. PATIENT IS POSITIONED ON HIS RIGHT SIDE. DENIES FEELING SHORT OF BREATH. PAIN IS 9/10 IN HIS BACK. PATIENT HR IS SINUS RHYTHM. AFEBIRLE. LR RUNNING AT 150 MLS/HR. PATIENT URINE OUTPUT DOCUMENTED HOURLY. URINE IS CLEAR AND YELLOW. NO BM BOWEL TONES ACTIVE. PLAN OF CARE UPDATED. CALL LIGHT WITHIN REACH NO FUTHER NEEDS.
--- NOTE | 2021-03-29 00:11 | NUR ---
WHILE SLEEPING SOUNDLY, PT DESATURATED QUICKLY LOW 62% ON ROOM AIR. OXYMASK AT 10L PLACED, PT QUICKLY RECOVERED SPO2 TO 100% AND OXYGEN TITRATED TO 6L.
--- NOTE | 2021-03-29 04:00 | NUR ---
PATIENT ASSESSMENT COMPLETE. LR RUNNING AT 150 MLS/HR. PATIENT IS DISORIENTED TO TIME, EVENT AND PLACE. PATIENT THINKS HE IS AT [facility]. LUNG SOUNDS ARE COURSE THROUGHOUT. OXYGEN SATURATIONS ARE WNL ON ROOM AIR WHEN AWAKE. DE SATS TO 80% AND REQUIRES THE OXYMASK AT 6 LITERS WHEN SLEEPING. HEART SOUNDS ARE WNL AND HEART IS SINUS RHYTHM. URINE OUTPUT IS DOCUMENTED HOURLY. NO BM AND BOWEL TONES ARE ACTIVE. PATIENT GIVEN PRN OXY FOR PAIN. 10/10 PAIN IN THE BACK. PATIENT REPOSITIONED TO LEFT SIDE. PLAN OF CARE UPDATED. CALL LIGHT WITHIN REACH NO FUTHER NEEDS.
--- NOTE | 2021-03-29 07:21 | NUR ---
report recieved, care of patient assumed at this time. Pt laying in bed awake, reports 10/10 back pain. Discussed repositioning in bed, pt refused at this time. PRN medication given (see emar).
--- NOTE | 2021-03-29 07:49 | NUR ---
Assessment completed and medications administered at this time. Pts blood pressure 177/84, AM blood pressure medications administered early. Pts lungs sound coarse, pt has an occasional cough that he states is non productive. pt has 2 plus bilateral pedal edema, dependent scrotal edema, and trace generalized edema. PT alert and oriented. Discussed plan of care for morning. luis care completed. Call light within reach. Denies further needs at this time.
--- NOTE | 2021-03-29 08:10 | NUR ---
Respiratory therapy in room with patient at this time for assessment and to administer breathing treatments.
--- NOTE | 2021-03-29 08:23 | NUR ---
Patient sat up in bed to eat breakfast at this time.
--- NOTE | 2021-03-29 08:55 | NUR ---
Dr Alvarez in room at this time to assess patient. This RN at bedside as well. No new orders at this time.
--- NOTE | 2021-03-29 09:02 | NUR ---
Discussed Patients elevated blood pressures with Dr. Alvarez. Orders recieved.
--- NOTE | 2021-03-29 09:24 | NUR ---
Occupational therapy in room at this time with patient. IV magnesium now infusing, oral blood pressure medication administered. Will continue to monitor.
--- NOTE | 2021-03-29 11:35 | NUR ---
Case management in room wiht patient at this time.
--- NOTE | 2021-03-29 12:07 | NUR ---
assessment completed at this time. No Isulin given for blood glucose within range. Pt alert and oriented. Denies pain or discomfort. Lungs remain coarse sounding. IV magnesium and fluids are infusing. Call light within reach. No further needs at this time.
--- NOTE | 2021-03-29 13:02 | NUR ---
pt repositioned onto right side. call light within reach. Denies further needs at this time.
--- NOTE | 2021-03-29 13:35 | EKG ---
[facility] [address] [facility] [place] [address] Signed Normal sinus rhythm Possible Left atrial enlargement Borderline ECG When compared with ECG of 16-SEP-2020 20:05, MN interval has decreased Confirmed by CASPER OLGUIN MD ([id number]) on 03/29/2021 1:35:19 PM Electronically Signed By: CASPER OLGUIN MD 03/29/21 1335 PATIENT NAME: CHUY RIVERA Electrocardiogram DATE OF : 43 PHYSICIAN: CASPER OLGUIN MD REPORT #: [id number] REPORT IS CONFIDENTIAL AND NOT TO BE RELEASED WITHOUT AUTHORIZATION
--- NOTE | 2021-03-29 13:45 | NUR ---
Pt given prn medication for pain before working with physical therapy. Pt able to stand at bedside multiple times with the assistance of physical therapist.
--- NOTE | 2021-03-29 14:42 | NUR ---
THIS CAGE FIGHTER AT BEDSIDE TO ASSIST STEFFI BELTRAN. PATIENT IS INCONTINENT OF STOOL. LINENS CHANGED, ATTENDS PLACED UNDER PATIENT. CALL LIGHT IN REACH, NO OTHER NEEDS AT THIS TIME
--- NOTE | 2021-03-29 16:30 | NUR ---
Assessment completed. Pt denies pain or discomfort at this time. Repositioned in bed, IV fluids infusing. Call light within reach. Will Continue to monitor.
--- NOTE | 2021-03-29 16:50 | NUR ---
[place] [address] [place]. He has a deck and a ramp. He uses a walker and a cane. He is a disabled from [place] and suffered a head injury. He is 100 % service connected. 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 Plans on dc to home when cleared medically.
--- NOTE | 2021-03-30 00:23 | NUR ---
PT SLEEPING. NO CONCERNS. WILL CONTINUE TO MONITOR.
--- NOTE | 2021-03-30 00:27 | NUR ---
O2 SATS DECREASED TO 66% ON RA WHILE SLEEPING D/T SUSPECTED SLEEP APNEA. 6L O2 VIA OXYMASK PLACED. WILL CONTINUE TO MONITOR.
--- NOTE | 2021-03-30 02:29 | NUR ---
PT CALLED REPORTING HEADACHE. OXYCODONE GIVEN PER PT REQUEST.
--- NOTE | 2021-03-30 04:19 | NUR ---
PT FREQUENTLY PERIODS OF APNEA AND DESATURATES TO THE MID TO HIGH 60S WITH 6L O2 VIA OXYMASK. O2 DOES RETURN TO 90-100% WHEN HE DOES BREATH. PT REFUSES CPAPA/BIPAP
--- NOTE | 2021-03-30 07:34 | NUR ---
REPORT RECEIVED FROM NIGHTSHIFT RN, WILL CONTINUE PLAN OF CARE.
--- NOTE | 2021-03-30 08:20 | NUR ---
RT IN ROOM INITIALLY WITH PT GIVING PT A SCHEDULED NEB TREATMENT. PT ALERT AND ORIENTED TO SELF, DATE, AND EVENT SURROUNDINGS BUT NOT TOWN. PT DENIES SHORTNESS OF BREATH BUT STATES HE HAS 9/10 PAIN IN HIS LOWER BACK AND LEGS, PT STATES LEG PAIN IS FROM HIS NEUROPATHY. PT VITALS TAKEN AND PT ASSESSED (SEE CHART). SCHEDULED MEDICATIONS ADMINISTERED AFTERWARDS ALONG WITH PRN OXYCODONE, INSULIN HELD PER SLIDING SCALE DUE TO A BLOOD SUGAR OF 123. PT NOW RESTING IN BED AND REPORTS NO FURTHER NEEDS. BEAUCHAMP DRAINING CLEAR YELLOW URINE, IVF INFUSING AT ORDERED RATE, PT ON ROOM AIR, SPO2 98%, WILL CONTINUE PLAN OF CARE.
--- NOTE | 2021-03-30 08:42 | NUR ---
PT'S BREAKFAST BROUGHT TO HIM AT THIS TIME. PT LAYING IN BED AWAKE AT THIS TIME ON ROOM AIR, IVF INFUSING ORDERED. RUG UNDERLAY MACHINE OPERATOR NASIR IN TO ASSIST IN REPOSITIONING PT UP ON THE BED. PT REPORTS NO FURTHER NEEDS AND IS NOW EATING BREAKFAST. CALL LIGHT IN REACH, BED IN LOWEST POSITION, WILL CONTINUE PLAN OF CARE.
--- NOTE | 2021-03-30 09:07 | NUR ---
PT FINISHED EATING BREAKFAST AT THIS TIME AND ATE 75% OF HIS BREAKFAST. PT ON ROOM AIR AWAKE AND ALERT, SPO2 96%. IVF CHANGED ORDERED AND IS NOW INFUSING AT 100 MLS/HR. PT REPORTS NO FURTHER NEEDS AT THIS TIME WHEN ASKED. CALL LIGHT IN REACH, BED IN LOWEST POSITION, WILL CONTINUE PLAN OF CARE.
--- NOTE | 2021-03-30 09:48 | NUR ---
CASE MANAGEMENT IN TO SEE PT AT THIS TIME. PT RESTING IN BED AWAKE AND ALERT ON ROOM AIR, IVF INFUSING AT ORDERED RATE. PT PROVIDED WITH ICE WATER PER HIS REQUEST. PT REPORTS NO FURTHER NEEDS AT THIS TIME WHEN ASKED, WILL CONTINUE PLAN OF CARE. CALL LIGHT IN REACH, BED IN LOWEST POSITION.
--- NOTE | 2021-03-30 09:50 | NUR ---
Brief conversation with [place]. He is somewhat confused. Insisting he spoke with me downstairs this am. Wanting to know where I went. Pt has remained in ICU bed and not left. He denies needs, just wanting to know where I have been. No plan on dc today.
--- NOTE | 2021-03-30 10:50 | NUR ---
PT LAYING IN BED AWAKE AND ALERT ON ROOM AIR, SPO2 98%, IVF INFUSING ORDERED. PT GIVEN A WIPE DOWN/BED BATH AT THIS TIME, BEAUCHAMP CARE DONE. PT INCONTINENT OF STOOL, PERICARE DONE, LINENS CHANGED AT THIS TIME, NEW ATTENDS IN PLACED. PT REPOSITIONED UP ON THE BED AFTERWARDS WITH HELP FROM ROX BEST. PT NOW RESTING IN BED, WATER PROVIDED PER HIS REQUEST. PT REPORTS NO FURTHER NEEDS AT THIS TIME, WILL CONTINUE PLAN OF CARE. CALL LIGHT IN REACH, BED IN LOWEST POSITION.
--- NOTE | 2021-03-30 11:15 | NUR ---
DR. MALONE IN TO SEE PT AND UPDATE ON PLAN OF CARE. PT AWAKE AND ALERT AT THIS TIME ON ROOM AIR, IVF INFUSING ORDERED. PT LUNCH ORDER TAKEN AFTERWARDS. PT NOW IN TO WORK WITH PT, PT REPORTS NO FURTHER NEEDS, WILL CONTINUE PLAN OF CARE. CALL LIGHT IN REACH, BED IN LOWEST POSITION.
--- NOTE | 2021-03-30 12:02 | NUR ---
PT SITTING AT THE BEDSIDE CHAIR AWAKE AND ALERT ON ROOM AIR, SPO2 98%. NEW BAG OF LR STARTED AT ORDERED RATE, CBG THEN ASSESSED AND WAS 145. 1 UNIT OF INSULIN TO BE GIVEN WITH LUNCH. PT REPORTS NO FURTHER NEEDS AT THIS TIME WHEN ASKED, RT NOW IN ROOM ASSESSING PT AND DOING A DUONEB TREATMENT. CALL LIGHT IN REACH, WILL CONTINUE PLAN OF CARE.
--- NOTE | 2021-03-30 12:23 | NUR ---
PT SITTING ON THE BEDSIDE RECLINER AWAKE AND ALERT ON ROOM AIR, SPO2 98%. PT DENIES SHORTNESS OF BREATH WHEN ASKED AT THIS TIME. IVF INFUSING ORDERED, PT DENIES THE NEED FOR PAIN MEDICATION AT THIS TIME WHEN ASKED. VITALS TAKEN AT THIS TIME. 1 UNIT OF INSULIN THEN ADMINISTERED PER SLIDING SCALE. PT'S LUNCH THEN BROUGHT TO HIM. PT NOW EATING LUNCH AND REPORTS NO FURTHER NEEDS. CALL LIGHT IN REACH, BEAUCHAMP DRAINING, IVF INFUSING ORDERED. PT NOTIFIED OF TRANSFER TO MS ROOM 111, WILL CONTINUE PLAN OF CARE.
--- NOTE | 2021-03-30 12:35 | NUR ---
RESPONDED TO PT CALL LIGHT, PT STATED HE WAS FINISHED EATING HIS LUNCH, PT ATE ABOUT 50% OF HIS FOOD. PT REPORTS NO FURTHER NEEDS AT THIS TIME WHEN ASKED, PT RESTING ON BEDSIDE CHAIR ON ROOM AIR, IVF INFUSING ORDERED. WILL CONTINUE PLAN OF CARE. CALL LIGHT ON CHAIR WITHIN REACH.
--- NOTE | 2021-03-30 12:58 | NUR ---
PT RESTING IN THE BEDSIDE RECLINER AWAKE AND ALERT. PT PROVIDED WITH ICE FOR HIS DIET SODA AT THIS TIME. HEART LEADS REMOVED FROM PT AT THIS TIME PER TRANSFER ORDERS. PT REPORTS NO FURTHER NEEDS AT THIS TIME WHEN ASKED, CALL LIGHT IN REACH, WILL CONTINUE PLAN OF CARE.
--- NOTE | 2021-03-30 14:10 | NUR ---
PT AWAKE AND ALERT RESTING ON THE BEDSIDE RECLINER ON ROOM AIR. IVF INFUSING ORDERED AT THIS TIME. PT DENIES HAVING ANY SHORTNESS OF BREATH BUT REPORTS 10/10 BACK AND MOSTLY LEG PAIN. PRN PAIN MEDICATION ADMINISTERED AT THIS TIME PER PT'S REQUEST (SEE MAR). COLD PACKS ALSO PROVIDED PER PT'S REQUEST AND PLACED ON LEGS. PT REPORTS NO FURTHER NEEDS AT THIS TIME WHEN ASKED. PT STATES HE WILL WAIT AND ORDER DINNER ONCE HE IS IN HIS NEW ROOM. CALL LIGHT IN REACH, WILL CONTINUE PLAN OF CARE.
--- NOTE | 2021-03-30 15:13 | NUR ---
PT AWAKE AND ALERT SITTING AT THE BEDSIDE RECLINER SPEAKING WITH HIS FRIEND. SCHEDULED MEDICATION ADMINISTERED AT THIS TIME (SEE MAR). REPORT THEN GIVEN TO MS STEFFI SMITH. PT THEN NOTIFIED OF TRANSFER. PT TAKEN TO MS ROOM 111 AWAKE AND ALERT ALONG WITH HIS BELONGINGS VIA THE BEDSIDE RECLINER. STEFFI SMITH IN ROOM 111 TO RECEIVE PT AND CONTINUE PLAN OF CARE AT 1505.
--- NOTE | 2021-03-30 15:20 | NUR ---
[facility] VSS, A+O, IVF infusing WNL. On room air. Pt states having R leg pain and swelling. Upon assessment, R knee is edematous, hot to touch, and pt states painful to the touch. L leg is WNL in comparison. Dr Benson notified, agreed XRAY to R knee would be appropriate, telephone order for imaging received and entered. Pt notified of plan of care and is agreeable.
--- NOTE | 2021-03-30 18:07 | NUR ---
Call light answered, patient requests to move to bed from chair. 1PA with FWW, slow and shuffling gait. IVF infusing WNL. VSS, A+O. Pt discusses home situation with ramp to front door, own walker at home. I/Os complete.
--- NOTE | 2021-03-30 22:36 | NUR ---
awakes easily, hob elevated, ivf infusing, tolerating liquids, call light at hands reach, on room air. no distress. f/c patent.
--- NOTE | 2021-03-31 01:57 | NUR ---
Resting, no distress on room air, ivf infusing, call light at hands reach.
--- NOTE | 2021-03-31 03:03 | NUR ---
went to check on pt, and he had taken off his gown and diaper off, was incontinent of large amount of brown soft bm. skin care done. blisters L inner thigh w/o changes 3 of them intact. f/c patent, scabbed over area R knee w/o problems, cooperative with assessment, mildly confused. following instructions after several cues. up to edge of bed. SOB with exertion noted. tolerated fair, unsteady gait. 1pa/fww. back to bed, helped with repositioning. On room air, abd large distended. IVF infusing Lhand, SL Rupper arm/shoulder area patent. tolerating fluids well.
--- NOTE | 2021-03-31 05:36 | NUR ---
pt c/o 01/14 abd/back and h/a pain, medicated with oxycodone 5mg po
--- NOTE | 2021-03-31 05:37 | NUR ---
pt has slept off and on. hob elevated, on room air, has O2 at bedside, used at begining of shift, sats WNL, lung dim t/o, ocassional moist non productive cough. Large abd, louisa, was incontinent of large amount of bowel. has f/c not chronic, voiding large amounts of yellow urine. attends in place. Waas medicated with Oxycodone 5mg po x2, effective. Has scabbed over area R lateral outer R knee area, decreaded edema noted, c/o tenderness at R knee. 3 blister L inner upper hip/below groin area intact, mass right below Left groin area present. edematous scrotum. generalized edema all extremities. Unsteady gait, up to edge of bed, tolerated good. helps with repositioning, forgetful at times, all procedures explained. Has tolerated fluids well, no emesis. CBG WNL, no coverage needed.
--- NOTE | 2021-03-31 07:20 | NUR ---
report recieved from police shift commander RN, resting in bed, callight within reach, bedalarm on, no needs at the moment.
--- NOTE | 2021-03-31 08:22 | NUR ---
RN in room to do morning meds and assessments, patient states grand daughter is bring him breakfast and doesnt want to order from [facility], denies any other needs at the moment
--- NOTE | 2021-03-31 11:47 | NUR ---
RN IN ROOM TO ADMINISTER PAIN MEDS, COMPLAINING OF 10/10 BACK PAIN PRN OXYCODONE 5MG GIVEN, NO OTHER NEEDS AT THE MOMENT .
--- NOTE | 2021-03-31 14:03 | NUR ---
WHILE I GOT PATIENT IN THE SHOWER. THE NURSE CAME IN AND CHANGED THE BED LINENS. PATIENT HAD A HARD TIME STANDING SO WE USED THE SHOWER CHAIR. THE NURSE PUT THE SOCKS ON AND ALSO THE GOWN. THAN WE BOTH HELPED HIM TO HIS CHAIR. HE DID THE WORK.
--- NOTE | 2021-03-31 14:30 | NUR ---
in to see pt. luis catheter removed. pt toelrated well. blister to outer right knee intact, weeping scant serous fluid. right outer knee cleaned with wound cleanser, pat dry, allevyn dressing applied. pt denies pain with blistered area at this time. afternoon assessment completed at this time. pt alerta and oriented x 3. pleasnat and cooperatuive with staff and cares. pt reports bilateral leg pain 8/10. pt sitting up in chair at this time talking on the phone. fresh ice water provided. urinal provided at the bedside. dinner and breakfast order palced. no other needs or requests at his time. call light in reach.
--- NOTE | 2021-03-31 16:16 | NUR ---
PT UP AMBULATING INDEPENEDENTLY IN ROOM IN A HUNTCHED OVER POSITION. THIS NURSE AND STEFFI CRAIG ASSISTED PT TO BED AND TO LAY DOWN. PT REPORTED PAIN 10/10 TO BILATERAL LEGS AND BACK. PRN OXYCODONE GIVEN PER ORDER. PT EDUCATION PROVIDED TO CALL WHEN NEEDING ASSITANCE. PT VERBALIZED UNDERSTANDING. NO VOID AT THIS TIME. URINAL WITHIN REACH. FRESH ICE WATER PROVIDED. NO OTHER COCNERS OR REQUESTS AT THISTIME. BED RAILS X 3 UP. BED ALARM ON. CALL LIGHT IN REACH.
--- NOTE | 2021-03-31 18:02 | NUR ---
in to see pt. pt still unable to void post luis catheter removal. bladder scan completed with 244mL. Dr. Benson called. verbal order to continue to monitor, encourage pt to get up to void and or use urinal; if pt umable to void and bladder scan results greater than 350mL re-insert luis catheter. pt updated on plan.
--- NOTE | 2021-03-31 18:19 | NUR ---
PT REMIANS ALERT AND OREITNED X 3, AT TIMES FORGETFUL. BEAUCHAMP CATHETER REMOVED THIS AFTERNOON, PT DUE TO VOID. BLADDER SCAN COMPLETED 244MLS, PROVIDER NOTIFED. VERBAL ORDER TO CONTINUE TO MONITOR AND RE-INSERT BEAUCHAMP IF PT UNABLE TO VOID AND BLADDER SCANS GREATER THAN 350ML. DUE FOR AM LABS TO BE DRAWN. BLOOD GLUCOSE HAS BEEN STABLE. VSS. WORKING WITH PT THIS SHIFT.
--- NOTE | 2021-03-31 18:49 | NUR ---
CALL MADE TO TO UPDATE ON PT. PT VOID 400MLS. PAIN TO BACK AND BILATERAL LOWER EXTREMITITES 8 AT 1715, WITH INCREASED AMBULATION TO BATHROOM AND ACTIVITY PAIN INCREASES TO 10/10. PROVIDER NOTIFIED, STATED "WILL ADD ADDITIONAL PAIN MANAGEMENT." ONCOMING NURSE NOTIFIED.
--- NOTE | 2021-03-31 21:00 | NUR ---
alert to self and situation, [place], on room air, lungs coarse , moist non productive cough present. abd large, had several bms this am shift. none this shift. up to br x2, voiding QS, yellow urine. allevyn dressing to R outer knee area, edema present, blisters on L inner thigh, 1 blister fluid filled remains, 3 blisters ruptured sometime this am, dry. edematous scrotum still present. c/o back pain and r knee pain. medicated with oxycodone 10mg po. improved edema to R knee, pt moves legs in bed and helps wtih repositioning. no lidocaine 5% available at this time. bruising back and arms, 2 SL R upper/shoulder area and L hands area patent. cbg 145, received 1 unit ss. procedures explained, pt cooperative, wears attends , tolerating liquids well, bed alarm on. fall precautions in place
--- NOTE | 2021-03-31 21:05 | NUR ---
IN ROOM TO COSIGN INSULIN. PT TALKING ABOUT DC TOMORROW AND FAMILY COMING TO GET HIM. PT DENIES FURTHER NEEDS AT THIS TIME. CALL LIGHT IS CLOSE.
--- NOTE | 2021-03-31 21:28 | NUR ---
IN ROOM TO ASSIST PT WITH STEFFI SOARES TO GET PT BACK IN BED AFTER HE VOIDED. HE WAS UNSTEADY AND PAINFUL WALKING ON RT KNEE. 2PA WITH FWW. PT NOW BACK IN BED AND DENIES FURTHER NEEDS, CALL LIGHT IS CLOSE AND BED ALARM IS ON.
--- NOTE | 2021-03-31 21:34 | NUR ---
BED ALARM GOING OFF, PT TRYING TO GET OUT OF BED, HAVING A HARD TIME SITTING UP IN BED AND REPOSITIONING TO GET OUT. REQUIRE 2 PEOPLE TO HELP, VERY UNCOORDINATED UNSTEADY GAIT WHEN STANDING UP, UNABLE TO FOLLOW INSTRUCTIONS 2PA/FWW TO GO LATERALLY, UNABLE TO GET INTO BED W/O ASSIST. WAS INCONTINENT OF URINE AND HAD SMALL BM. BACK TO BED. UPSET OVER BED ALARM, EXPLAINED TO PT, EXPLANED TO PT ABOUT HOW UNCOORDINATED UNSTEADY AND FALL PRECAUTIONS. NOT VERY RECEPTIVE 'I AM GOING HOME IN AM, BALAJI IS COMING TO PICK ME UP, ZACHARIAH GOING HOME, IM BETTER NOW'. CALMER AT THIS TIME NOW. MEDICATED EARLIER WITH OXYCODONE 10MG. ALLEVYN APPLIED TO BOTH R OUTER KNEE AREA, MOIST SS DRAINAGE, LEFT INNER THIGH AREA, EDEMA TO ALL EXTREMITITIES, R KNEE AND ANKLES. FORGETFUL AT TIMES, BED ALARM ON INCONTINENT OF URINE
--- NOTE | 2021-03-31 22:47 | NUR ---
BED ALRM GOING OFF, PT TRYING TO GET OUT OF BED, UNCOORDINATED LE. 'HERE HELP ME TO GET TO THE LIVING ROOM, HELP ME GET THIS BANDAGES OFF" POINTING TO L HAND. PT HAD PULLED IV SL OUT. TIP INTACT. NOT BLEEDING. REORIENTED, RECEPTIVE AFTER SEVERAL CUES. BED ALRM ON ATTENDS DRY, TOLERATING LIQUIDS WELL,
--- NOTE | 2021-04-01 00:03 | NUR ---
PT HOB ELEVATED, ON ROOM AIR, NO DISTRESS, EYES CLOSED, RESTING, FLUIDS AND CALL LIGHT AT HANDS REACH, BED ALARM ON, LEGS ELEVATED.
--- NOTE | 2021-04-01 00:54 | NUR ---
BED ALARM GOING OFF, PT TRYING TO GET OUT OF BED. 'I WANT MY CLOTHES, I WAS TOLED I CAN GO HOME, I HAVE STUFF I NEED TO DO BY MYSELF, I NEED TO GO HOME SO YOU GUYS DO NOT HAVE TO DO ANYTHING , I CAN DO EVERYTHING BY MYSELF. IM BETTER NOW". TOOK SEVERAL CUES TO REDIRECT PT. IRRITABLE MOOD, REASSURED, ALL PROCEDURES EXPLAINED. BACK TO BED, HELPED WITH REPOSITIONED. UNSTEADY COORDINATION WHEN TRYING TO GET LEGS BACK IN TO BED HE HAD L LEG DANGLING FROM THE BED. REORIENTED, CALMED DOWN, REPOSITIONED IN BED, HOB ELEVATED, ROOM AIR, COOP WITH ASSESSMENT. ALLAVYN DRESSING TO BOTH R KNEE AND L THIGH AREA PATENT. NO NEW DRAINAGE. DENIES NEEDING PAIN MEDS AT THIS TIME. TOLERATED SIPS OF FLUIDS. WAS INCONTINENT OF LARGE AMOUNT OF URINE, SKIN CARE AND NEW ATTENDS IN PLACE, SCROTUM STILL VERY EDEMATOUS, SMEAR OF BROWN BM PRESENT. FLUIDS, CALL LIGHT AT HANDS REACH, BED ALARM ON.
--- NOTE | 2021-04-01 03:08 | NUR ---
PT USED CALL LIGHT, STILL IRRITABLE CREWS VOICE, URINAL GIVEN, VOIDED LARGE AMOUNT OF YELLOW URINE, ATTENDS DRY, TOLERTING SIPS OF FLUIDS, HELPED WITH REPOSITIONING, MORE ALERT. CALMED DOWN AND VOICE BECOME NORMAL AND QUIET, WATCHING TV. DENIES C/O PAIN.
--- NOTE | 2021-04-01 05:48 | NUR ---
pt was incontinent of urine, irritable mood, up to edge of bed, skin care, toleratd fait. unsteady, uncoordinated gait, 2PA/fww, required several cues , back to bed. medicated with Oxycodone 10mg po c/o back and r knee pain. stiff LE, tolerating fluids well, call light at hands reach
--- NOTE | 2021-04-01 05:50 | NUR ---
PT CALLED, HE WAS INCONTINENT OF URINE. 2PA TO HAVE PT PIVOT TO CHAIR WHILE WE CHANGED HIS BEDDING. PT STATES HE IS GOING HOME TODAY, BUT HAS A DIFFICULT TIME 2PA TO PIVOT FROM BED TO CHAIR. PT IS NOW BACK IN BED, RODGER RN REMAINS IN ROOM WITH PT.
--- NOTE | 2021-04-01 05:53 | NUR ---
PT HAS BEEN AWAKE FOR MOST OF THIS SHIFT, TAKING SMALL NAPS. IRRITBALE, UPSET, USED FOUL LANGUAGE, WANTED TO GO HOME. REDIRECTABLE, CHEESH-NA, REQUIRES SEVERAL CUES. UP TO EDGE OF BED X2, 2PA/FWW, UNSTEADY, UNCOORDINATED GAIT NOTED. SOB WITH EXERTION NOTED FIRST TIME WHEN UP AT BEGINING OF SHIFT, NO SOB NOTED A FEW MINUTES AGO WHEN UP TO EDGE OF BED TO DO WHOLE BED CHANGED. ON ROOM AIR, LUNGS DIM AT BASES AND RHONCHI NOTED. MOIST PRODUCTIVE COUGH, PT SWALLOWS SECRETIONS. TOLERATING LIQUIDS WELL, HAS BEEN INCONTINENT OF URINE AND USED URINAL X1, HAS SMALL BM, INCONTINENT. ATTENDS CHANGED, SKIN CARE DONE. LOWER BACK INCISION W SUTURES INTACT, PINK AND OLD PURPLISH BRUISED AREA STILL W/O CHANGES. R LATERAL KNEE AREA AND L INNER MID THIGH AREA ALLEVYN DRESSING IN PLACE. EDEMATOUS PEINFUL R KNEE/LEG, MEDICATED WITH OXYCODONE 10MG PO X2 PER BACK/R LEG PAIN, EFFECTIVE. TOLERATING LIQUIDS WELL. FORGETFUL, REDIRECTABLE. PT LIVES ALONE, NOT SAFE TO GO HOME PER THIS NURSES ASSESSMENT. FALL AND ASPIRATION PRECAUTIONS IN PLACE. CALM WATCHING TV AT THIS TIME
--- NOTE | 2021-04-01 07:29 | NUR ---
REPORT RECEIVED FROM STEFFI SOARES. PT RESTING IN BED, AGITATED AND PULLING AT SHEETS AND BED RAILS, FIGITING. BED RAILS UP. BED ALARM ON. STEFFI LAWTON ASSUMING CARE OF PT AND PRESENT FOR REPORT. THIS RN TO ASSIST.
--- NOTE | 2021-04-01 07:30 | NUR ---
in to see pt. pt laying in bed with eyes open and hob elevated. no cocnerns or request at this time. bed alarm on. bed rails x 2 up. call light in reach.
--- NOTE | 2021-04-01 07:40 | NUR ---
BED ALARM ON. PT ATTEMPTING TO GET OUT OF BED. PT REPORTS 10/10 PAIN IN KNEES AND BACK BUT THEN STATES "WELL THEY JUST GAVE ME SOME MEDICINCE SO I GUESS IT'S BETTER NOW." DEPENDS SOILED. 2 PERSON ASSIST UP TO BEDSIDE COMODE. PT UNABLE TO VOID OR HAVE BOWEL MOVEMENT. IVAN CARE DONE. DEPENDS CHANGED. 2 PERSON ASSIST UP TO CHAIR. PT VERY UNSTEADY ON FEET. WALKER SHAKES WITH USE. PT HAS DIFFICULTY BRINGING FEET TOGETHER/INSIDE WALKER. CHAIR ALARM PLACED. RIGHT LOWER EXEREMITIY NOTED TO BE MORE SWOLLEN THAN LEFT AND PT REPORTS PAIN TO CALF WITH TOUCH. DR. MALONE UPDATED, NEW ORDERS TO BE PLACED. CALL LIGHT WITHIN REACH. CHAIR ALARM ON.
--- NOTE | 2021-04-01 08:52 | NUR ---
Patient refused warm wash cloth part of AM care. RN is in the room.
--- NOTE | 2021-04-01 09:00 | NUR ---
IN TO SEE PT. PT UP IN CHAIR WITH LEGS ELEVATED. PT ACCEPTED 100% BREAKFAST. AM MEDICATIONS DUE. PT WITH C/O 4/10 PAIN TO RIGHT CALF, RIGHT CALF BIGGER THAN THE LEFT, CALF FIRM TO THE TOUCH. TENDERNESS ON PALPATION TO RIGHT CALF. NO REDNESS OR WARMTH NOTED. LEFT CALF 40CM AND RIGHT CALF 44.5CM. DRESSINGS TO LEFT GROIN AND RIGHT OUTER KNEE CLEANED WITH WOUND CLEANSER AND NEW ALLEVYN DRESSINGS APPLIED, SMALL SEROUS DRAINAGE NOTED. NO S/SX OF INFECTION NOTED AT HIS TIME. PT TOLERATED WELL. PT AWAKR AND ALERT PER BASELINE AT THIS TIME. NO OTEHR ONCERNS OR REQUESTS AT THIS ITME. CALL LIGHT IN REACH.
--- NOTE | 2021-04-01 09:25 | NUR ---
DR. MALONE TO BEDSIDE FOR ROUNDS. THIS RN PRESENT. PT VERY AGITATED, SHAKING FISTS AT DOCTOR. PT REPORTS HE WOULD LIKE TO HAVE VISITORS, WOULD LIKE "TO GET OUT OF THIS CAVE" AND WANTS TO PAY HIS BILLS. PT ENCOURAGED TO CALL FAMILY MEMBERS. PT ASSITED WITH USING HIS PHONE TO CALL [facility]. PT REMAINS UP TO CHAIR. CALL LIGHT WITHIN REACH. REPORTS 6/10 PAIN IN BILATERAL KNEES AND BACK. RIGHT CALF REMAINS TENDER TO TOUCH, NO REDNESS NOTED, SWELLING UNCHANGED. CHAIR ALARM ON.
--- NOTE | 2021-04-01 09:30 | NUR ---
IN TO ROOM TO SPEAK WITH PATIENT ABOUT PLACEMENT OPTIONS FOR DISCHARGE. DR. MALONE AND NATALI RN AT CHAIR SIDE. AFTER MD ASSESSMENT PATIENT ASKING TO GO HOME. PATIENT STATES "I JUST NEED TO GO HOME FOR AN HOUR TO GET SOME BILLS TAKEN CARE OF." DR. MALONE AND JAUN RN DISCUSSING THAT LEAVING IS NOT A SAFE OPTION AT THIS TIME DUE TO THE PATIENT CONDITION. PATIENT UPSET AND DISCUSSING LEAVING AMA. PATIENT STATES " I AM BEING TREATED LIKE A THIED CLASS CITIZEN." "[facility] AND [facility]OULD [facility] OF HERE IN A MINUTE." PATIENT STATING THAT HE HAS SPENT THE WEEKEND NOT IN A HOSPITAL ROOM AND THAT HIS GRANDDAUGHTER HAS BEEN NOT BEEN ABLE TO VISIT. ATTEMPTS MADE BY ALL STAFF TO REDIRECT AND REASSURE PATIENT. CASE MANAGEMENT WILL DEFER DISCUSSION REGARDING DISCHARGE PLACEMENT AT THIS TIME. STEFFI HURST REMAINS AT CHAIR SIDE WITH THE PATIENT, ENCOURAGING PATIENT TO CALL HIS GRANDDAUGHTER TO COME IN FOR VISITATION. WILL CONTINUE TO FOLLOW UP WITH PATIENT.
--- NOTE | 2021-04-01 09:49 | NUR ---
RT IN WITH PT GIVING BREATHING TRMT. WILL CHECK BACK AFTER AGP HAS CLEARED
--- NOTE | 2021-04-01 09:55 | NUR ---
IN TO SEE PT,PT SITTING IN CHAIR AT THIS TIME. PT REQUEST TO WALK IN ROOM. STEFFI Zendejas ASSITED PT TO AMBULATE FROM THE CHAIR TOT HE BED. PT REPORTS "I FEEL GOOD, BUT A LITTLE STIFF.'p PT REPORTS HE IS NOT READY TO AMBULATE IN THE HALLWAY YET, BUT WANTS TO WORK ON MUSCLE TONE IN THE ROOM. PT AMBULATED BACK TO CHAIR. ASSISTED PT TO GET DRESSED. IV FLUIDS STARTED PER ORDER. NO OTHER AM ASSESSMENT COMPLETED. NO OTHER COCNERS OR REQUESTS AT THIS TIME. CHAIR ALRM ON. LEGS ELEVATED IN CHAIR. CALL LIGHT IN REACH.
--- NOTE | 2021-04-01 10:05 | NUR ---
PT AGITATED STATING "PUT THESE FEET DOWN AND I CAN GET UP AND WALK OUT OF HERE!" PT ASSISTED UP TO AMBULATE WITH FRONT WHEEL WALKER, 2 PERSON ASSIST AND GATE BELT. PT ABLE TO AMBULATE FROM CHAIR TO BED. WALKER SHAKING WITH AMBULATION. PT VERY UNSTEADY ON FEET. PT SITS ON BED AND STATES "WELL YOU ALL NEED TO WORK ON MY MUSCLE STRENGTH!" PT AGREES THAT HE WILL STAY AT THIS TIME, "WORK ON THIS MUSCLE STRENGTH." PT AMBULATES BACK TO CHAIR WITH 2 PERSON ASSIST, FRONT WHEEL WALKER, AND GATE BELT. pT DRESSED IN SHIRT FROM HOME AND SCRUB BOTTOMS. IV FLUIDS STARTED PER MD ORDER BY STEFFI LAWTON. NO ADDITIONAL REQUESTS OR COMPLAINTS. CALL LIGHT [employer] REACH. CHAIR ALARM ON.
--- NOTE | 2021-04-01 11:16 | NUR ---
Patient currently has rn acute dialysis and visitors in room.
--- NOTE | 2021-04-01 11:30 | NUR ---
PTS FAMILY ARRIVED, GRANDAUGHTER AND FRIEND FROM HOME, TO VISIT WITH PT. PLAN OF CARE EXPLAINED AND FAMILY VERBALIZES UNDERSTANDING STATING THEIR QUESTIONS HAVE BEEN ANSWERED. PT CONTINUES TO BE CONFUSED STATING "I HAVEN'T SLEPT IN DAYS. THEY KEPT ME IN A SHED ALL WEEKEND IN THE DARK." PTS FAMILY ASSURES PT THAT HE THEY HAVE BEEN HERE WITH HIM. LUNCH DELIVERED. BLOOD SUGAR STABLE, NO INSULIN NEEDED. RT TO BEDSIDE FOR BREATHING TREATEMENT. CALL LIGHT WITHIN REACH. CHAIR ALARM ON.
--- NOTE | 2021-04-01 11:56 | NUR ---
PT SITTING IN CHAIR, LEGS ELEVAED LOOKING OUT WINDOW. PT SEEMS SOMEWHAT CONFUSED, SAID HE WAS IN SHED ALL WEEKEND WITH OUT ANY HELP. G.DAUGHTER HERE THEN AND REMINDED PT THAT HE WAS NOT IN SHED. PT IS ADAMANT HE WAS PT GOT IRRITATED WITH GRAND.DAUGHTER, UPSET HER BUT SEEMS TO BE DEALING APPROPRIATELY.PT STATED HIS LEGS HURT, OFFERED PT WARM BLANKETS-PT SAID NO, FAMILY SAID THEY HELP. GAVE ENCOURAGEMENT AND BLESSING. LEFT G.POST FRIEND THAT WAS THERE SAID HE OFTEN GETS BENEFIT FROM ICE PACKS ON HIS BACK. PASSED ON TO RN. WILL FOLLOW NEEDED
--- NOTE | 2021-04-01 12:41 | NUR ---
RADIOLOGY IN WITH PT TO PERFOM ORDERED ULTRSOUND.
--- NOTE | 2021-04-01 12:52 | NUR ---
ULTRASOUND TECHNITIAN TO BEDSIDE FOR EXAM AND IMAGING. ORDER NOTED TO SAY LEFT LOWER EXTREMITY WHEN IN FACT IT IS PTS RIGHT CALF THAT IS PAINFUL TO TOUCH AND SWOLLEN, ORDER CLARIFIED WITH MD AND CHANGED. PT TRANSFERED BACK TO BED WITH 1 PERSON ASSIST AND FWW FOR IMAGING. NO ADDITIONAL REQUESTS OR COMPLAINTS AT THIS TIME. CALL LIGHT WITHIN REACH.
--- NOTE | 2021-04-01 13:58 | NUR ---
Patient via commode and to chair FWW 1PA. Call light is in reach. RN is in room.
--- NOTE | 2021-04-01 14:02 | NUR ---
AFTERNOON ASSESSMENT AND MEDICATION DUE. PT REMAINS IN BED AFTER ULTRASOUND.. 2 PERSON ASSIST UP TO BEDSIDE COMODE. BED NOTED TO BE SATURATED WITH URINE. PT UNABLE TO HAVE ADDITONAL VOID ON COMODE. IVAN CARE DONE. DEPENDS CHANGED. 2 PERSON ASSIST WITH FRONT WHEEL WALKER UP TO CHAIR. ASSESSMENT DONE. PT REPORTS 8/10 PAIN IN BILATERAL KNEES AND BACK. LIDOCANE CREAM APPLIED. PT STATES "THAT CREAM IS ENOUGH." DECLINES ADDITIONAL PAIN MEDICATION. PT CARIES ON CONVERSTATION APPROPRAITLY. PT OREINTED TO SELF, MONTH, YEAR AND SITUATION BUT IS DISORIENTED TO PLACE "I'M AT [facility]" AND DATE "ITS THE OR OR SOMETHING." PT LESS AGITATED THIS AFTERNOON WITH UPDATE REGARDING PLAN OF CARE. PT CALLING FAMILY TO REPORT HE HAS A BLOOD CLOT. PT EXPRESSES "LOOKING FORWARD" TO TREATEMENTS. FIRST LOVENOX INJECTION GIVEN AND EXPLAINED TO PT. PT REPEATS BACK INFORMATION BUT CONTINUES TO ASK REPEATED QUESTIONS ABOUT "WHAT'S THIS FOR EXACTLY." LUNG SOUNDS REMAIN CORSE. PT DENEIS SHORTNESS OF BREATH. UPPER LOBE LUNG SOUNDS IMPROVE SLIGHTLY WITH COUGH. HEART MURMUR HEARD, PT RPEORTS "I'VE HAD A MILLION DOCTORS TELL ME I HAVE THAT MURMUR." EDEMA CONTINEUS TO BLE, MORE SO ON LEFT LEG, MEASUREMENTS UNCHANGED. SCROTAL EDEMA CONTINUES. ALLEVYN TO GROIN AREA AND RIGHT KNEE LOOSE, CHANGED. LEGS ELEVATED WHILE UP TO CHAIR. PT DENIES ADDITIONAL REQUESTS OR COMPLAINTS. CALL LIGHT [employer] REACH. CHAIR ALARM ON.
--- NOTE | 2021-04-01 15:17 | NUR ---
tHIS RN TO ROOM TO CHECK ON PT. PT UP TO CHAIR, RESTING WITH EYES CLOSED. RESPIRATIONS EVEN AND UNALBORED. PTS LEGS NOTED TO BE SLIDING OFF EDGE OF RECLINER, INDENTATION NOTED IN LEGS FROM EDEMA AND PRESSURE OF CHAIR. BLANKET PLACED UNDER PTS LEGS TO PROVIDE SUPPORT AND PROTECTION TO SKIN. PT ALLOWED TO CONTINUE RESTING. CALL LIGHT WITHIN REACH. CHAIR ALARM ON.
--- NOTE | 2021-04-01 16:02 | NUR ---
THIS RN TO ROOM TO CHECK ON PT. PT CONTINUES RESTING WITH EYES CLOSED. RESPIRATIONS EVEN AND UNLABORED. RT TO BEDSIDE TO ADMINISTER NEBULIZER TREATMENT. PT ALLOWED TO REST. CALL LIGHT WITHIN REACH. CHAIR ALARM ON.
--- NOTE | 2021-04-01 17:20 | NUR ---
THIS RN TO ROOM TO CHECK ON PT. PT AWAKEN. PT NOTED TO BE SOILED WITH URINE. PT UP TO STAND WITH 2 PERSON HEAVY ASSIT. PT REPORTS "I'M JUST TO WEAK TO STAND." IVAN CARE DONE. DEPENDS CHANGED. PT UNABLE TO ASSIST WITH ADL CARE. PT TAKES 2-3 SHUFFELING STEPS UP TO LARGER CHAIR TO ACCOMIDATE PTS BOW LEGGAGED RESTING POSITION. PT REPORTS 3/10 KNEE PAIN STATING HE DOES NOT NEED ADDITONAL PAIN MEDICATION. BLOOD SUGAR STABLE, NO INSULIN NEEDED. PT EATING DINNER. CHAIR ALARM ON. CALL LIGHT WITHIN REACH.
--- NOTE | 2021-04-01 17:32 | NUR ---
Patient is in chair with call light in reach.
--- NOTE | 2021-04-01 17:49 | NUR ---
RETURNED MATERIALS INSPECTOR REPORTS PT IS ON THE PHONE REPROTING TO HIS FAMILY THAT HE HAS CANCER. THIS RN TO ROOM. PT TALKING WITH HIS SISTER "YES! I HAVE CANCER! THATS WHAT EVERYONE SAYS. HERE TALK TO THE NURSE." THIS RN TALKS WITH MADDY PTS SISTER ([phone]) AND CLARIFIES PT CONDITION AND PLAN OF CARE. MADDY IS GREATFUL FOR CLARIFICATION AND STATES SHE WOULD BE HAPPY TO TALK WITH THE [employer]P [employer] SALES TO ASSIST WITH DISCHARGE PLANNING. MADDY STATES HER QUESTIONS HAVE BEEN ANSWERED AND VERBALIZES UNDERSTANDING OF PLAN OF CARE. MESSAGE LEFT FOR CASE MANAGEMENT. PT REMAINS UP TO CHAIR CONTINUES TALKING WITH MADDY. PT REPORTS HE HAD "SALAD AND BEDSIDE ROLLS" FOR DINNER (PT INFACT HAD A SANDWICH AND YOGURT). NO ADDITONAL REQEUSTS OR COMPLAINTS AT THIS TIME. CHAIR ALARM ON, CALL LIGTH WITHIN REACH.
--- NOTE | 2021-04-01 18:16 | NUR ---
PT HERE FOR RABODMYOLYSIS AND METABOLIC ENCEPHALOPATHY. 2 PERSON HEAVY ASSIST WITH FWW AND GATE BELT UP TO CHAIR THIS SHIFT. PT TOELRATING 60G CARB DIET WITH GOOD INTAKE, SLIDING SCALE INSULIN GIVEN X1 WITH BLOOD SUGAR CHECKS. LUNG SOUNDS CONTINUE TO BE CORSE THROUGHOUT, RT INVOLVED WITH SCHEDULED NEB TREATEMENTS GIVEN. PT NOTED TO HAVE INCREASED SWELLING TO RLE WELL CALF PAIN, ULTRASOUND PERFORMED AND BLOOD CLOT FOUND. LOVENOX STARTED. PT REMAINS INCONSISTANTLY ORIENTED. PT FREQUENTLY FORGETFUL AND TELLING STORIES OF PAST EVENTS THAT ARE NOT TRUE. FAMILY TO BEDSIDE TO TALK WITH PT AND FAMILY ALSO UPDATED BY PHONE. IV FLUIDS RESTARTED THIS SHIFT. MULTPLE ALLEVYINS APPLIED TO ONGOING SKIN BLISTERS. PT USES CALL LIGHT INCONSISTANTLY. BED/CHAIR ALARM FOR SAFETY.
--- NOTE | 2021-04-01 18:42 | NUR ---
PT CALL LIGHT ON. PT REQUESTS ASSISTANCE BACK TO BED AND UP TO PEE. PT STANDS WITH 2 PERSON ASSIST, PT VOIDS 450ML CLEAR YELLOW URINE INTO URINAL. PT STATES "DONT' LET ME SLEEP MORE THAN 4 HOURS OR THE BED WILL BE ALL WET AGAIN." PT REQUESTS TO BE PUT ON A TOILETING SCHEDULE. WILL PASS OFF DURING HAND OFF REPORT. 2 PERSON ASSIST WITH GATE BELT AND FWW BACK TO BED. PT ASSIST WITH POSITOINING IN BED. LEGS ELEVATED. PT DENIES ADDITIONAL REQUESTS OR COMPLAINTS. CALL LIGHT WITHIN REACH. BED RAILS UP. BED ALARM ON.
--- NOTE | 2021-04-01 19:00 | NUR ---
SHIFT REPORT RECEIVED FROM [facility] STEFFI HURST AT BEDSIDE. pt AWAKE AND RESTING IN BED. IV FLUIDS INFUSING DIRECTED, IV SITE WNL. BED ALARM ON FOR SAFETY. pt IN GOOD SPIRITS, NO NEEDS AT THIS TIME. ALLEVYN TO BLE INTACT, CALL LIGHT IN REACH AND pt IN VIEW OF RN STATION.
--- NOTE | 2021-04-01 19:31 | NUR ---
PT CALLED SAYING HIS MACHINE IS BEEPING. IV IS INFUSING FINE, REASSURED PT THAT IT IS OK, HE DENIES FURTHER NEEDS. CALL LIGHT IS CLOSE AND BED ALARM IS ON.
--- NOTE | 2021-04-01 19:52 | NUR ---
BED ALARM SOUNDED, PT ASKED FOR HELP PUTTING HIS LEG BACK IN BED. HE DENIES FURTHER NEEDS, CALL LIGHT IS CLOSE AND BED ALARM IS ON.
--- NOTE | 2021-04-01 20:45 | NUR ---
2PA TO BSC WITH FWW AND BACK TO BED. BLOOD SUGAR CHECKED, BG IS 144. RT IN ROOM AT THIS TIME GIVING NEB TRT. CALL LIGHT IS CLOSE, BED ALARM IS ON.
--- NOTE | 2021-04-01 20:45 | NUR ---
ASSESSMENT COMPLETE, SCHEDULED HS MEDS ADMINISTERED, SEE EMAR. pt A/O TO SELF, DATE, PLACE, AND EVENTS AT THIS TIME. BED ALARM REMAINS ON FOR SAFETY. pt UP TO VOID AND HAVE BM VIA 2PA WITH FWW TO BSC. SMALL SOFT BM NOTED. pt BACK TO BED, BED ALARM RESUMED. IV SITE WNL, BLOOD RETURN NOTED, FLUIDS INFUSING DIRECTED. ALLEVYN TO INNER THIGHS REMAIN C/D/I, PER SHIFT REPORT BLISTERS NOTED UNDER ALLEVYNS, WILL MONITOR AND REPLACE PRN. NO ADDITIONAL NEEDS, CALL LIGHT IN REACH.
--- NOTE | 2021-04-01 20:49 | NUR ---
CLARIFIED WITH DR MALONE THAT ELIQUIS SHOULD BE STARTED TONIGHT AFTER HAVING LOVENOX THIS AM. NO NEW ORDERS RECEIVED. NOTIFIED PRIMARY STEFFI MCCLELLAND.
--- NOTE | 2021-04-01 20:55 | NUR ---
CALL LIGHT ANSWERED, ASSISTED pt WITH USE OF URINAL. NO FURTHER NEEDS OR CONCERNS VERBALIZED. CALL LIGHT IN REACH AND BED ALARM ON. pt IN VIEW OF RN STATION.
--- NOTE | 2021-04-01 23:05 | NUR ---
ROUNDED ON pt, pt RESTING IN BED WITH EYES CLOSED. RR EVEN AND UNLABORED. NO DISTRESS NOTED. IV FLUIDS INFUSING DIRECTED, IV SITE WNL. CALL LIGHT IN REACH AND BED ALARM ON.
--- NOTE | 2021-04-02 00:32 | NUR ---
ROUNDED ON pt, pt RESTING QUIETLY WITH EYES CLOSED, AUBILE SNORING NOTED. SPO2 MID TO UPPER 80'S WHILE SLEEPING, ABOVE 90% WHEN AWAKE, pt PLACED ON 1LNC. pt DENIES HX OF SLEEP APNEA EARLIER IN SHIFT. BED SIDE CPOX REMAINS ON, WILL CONTINUE TO MONITOR. SPO2 LOW TO MID 90'S. pt HEAVILY INCONTINENT OF URINE, WITH HELP FROM RADIO MECHANICSTEFFI REDMOND, IVAN CARE DONE ALONG WITH COMPLETE LINEN CHANGE. DRY ATTENDS IN PLACE WITH IVAN PADS. IV FLUIDS INFUSING DIRECTED, IV SITE WNL. BED ALARM RESUMED, CALL LIGHT IN REACH.
--- NOTE | 2021-04-02 03:30 | NUR ---
pt BED BED ALARM SET OFF, PT INCONT OF URINE, 2PA PIVOT TO CHAIR, LINENS CHANGED, PT BACK TO BED, RN ROUNDING ON PT, FRESH ICE WATER AND DIET SODA PROVIDED, BED ALARM IS SET, NO FURTHER NEEDS AT THIS TIME
--- NOTE | 2021-04-02 03:36 | NUR ---
IN ROOM TO ROUND ON pt, pt UP IN CHAIR, RETORT SETTERSTEFFI REDMOND AND ROX FLORIAN ALREADY IN ROOM ASSISTING WITH BED CHANGE, pt INCONTINENT OF URINE. pt BACK IN BED, BED ALARM ON, IV FLUIDS INFUISNG DIRECTED. IV SITE WNL. ASSESSMENT COMPLETE, NO ACUTE CHANGES. PRN PAIN MEDICATION GIVEN, SEE EMAR. CALL LIGHT IN REACH.
--- NOTE | 2021-04-02 04:03 | NUR ---
PT CALLED FOR ASSISTANCE REPOSITIONING IN BED AND WANTED HIS BLANKET ON. HE DENIES FURTHER NEEDS, CALL LIGHT IS CLOSE.
--- NOTE | 2021-04-02 04:54 | NUR ---
ASSISTED pt WITH USE OF URINAL, BED ALARM REMAINS ON FOR SAFETY. SCHEDULED THYROID MEDICATION GIVEN, SEE EMAR. pt AWAKE AND REPORTS HE PLANS ON STAYING AWAKE FOR THE DAY, O2 REMOVED AND pt ON RA, SPO2 94%. CALL LIGHT IN REACH.
--- NOTE | 2021-04-02 05:30 | NUR ---
IN TO GET VITALS, I&Os DONE, PT RESTING DURING VITALS
--- NOTE | 2021-04-02 06:39 | NUR ---
IN ROOM TO HANG NEW BAG OF IV FLUID. PT REPORTS PAIN IN BOTTOM OF FEET AT 9/10 AT THIS TIME. LAST DOSE OF OXYCODONE WAS 3 HRS AGO AND 5MG WAS ADMINISTERED. ORDER IS FOR 5-10MG OXYCODONE. ADMINISTERED 5MG OF OXYCODONE FOR 9/10 PAIN. PT DENIES FURTHER NEEDS AT THIS TIME. CALL LIGHT IS CLOSE. AND BED ALARM IS ON.
--- NOTE | 2021-04-02 07:00 | NUR ---
Report received from Anitha KAPADIA. Pt requests to use urinal, assisted with this. Pt A+O, on room air. States no pain or needs at this time, will continue plan of care.
--- NOTE | 2021-04-02 07:55 | NUR ---
CBG checked, 120. Pt up to chair, breakfast delivered.
--- NOTE | 2021-04-02 08:10 | NUR ---
PT AWAKE IN ROOM AND IS 1/2PA TO THE CHAIR WITH FWW. LINEN CHANGED. CHAIR ALARM ON. CALL LIGHT WITHIN REACH. FRESH ICE AND FRESH ICE WATER GIVEN TO THE PT. WHITE BOARD UPDATED. NO FURTHER NEEDS AT THIS TIME.
--- NOTE | 2021-04-02 08:55 | NUR ---
Scheduled medications administered, assessment complete. Pt sitting up in chair watching tv. A+O, VSS. Skin assessment complete, blisters to L upper thigh covered with allevyn, scant amount drainage noted. BLE edematous, R 2+, L 1+. Scrotal edema noted, elevated as tolerated. IVF infusing WNL. I/Os complete.
--- NOTE | 2021-04-02 10:20 | NUR ---
Call light answered, assisted patient from commode back to chair after extra large BM and large unmeasured void mostly onto floor. Pt able to stand and use walker independently but has very wide gait and needs reminders to stand tall. IVF infusing WNL. No further needs, call light in reach, friend in to visit.
--- NOTE | 2021-04-02 11:15 | NUR ---
New IV started in R forearm, IVF infusing WNL. IV in R upper arm DC'd WNL
--- NOTE | 2021-04-02 12:08 | NUR ---
CBG checked, 138. Lunch provided. Pt sitting up in chair, states no pain or needs. Call light in reach
--- NOTE | 2021-04-02 14:46 | NUR ---
CALL LIGHT ANSWERED. pt C/O 12/14 PAIN IN RIGHT THIGH/GROIN AREA. PRN PAIN MEDICATIONA ADMINISTERED. SCHEDULED MEDICATIONS ADMINISTERED AT THIS TIME. ICE WATER AND DIET PEPSI PROVIDED. TRAY TABLE, CALL LIGHT IN REACH.
--- NOTE | 2021-04-02 16:00 | NUR ---
Call light answered, pt requests to use urinal, assisted
--- NOTE | 2021-04-02 16:45 | NUR ---
CBG checked, 109, no insulin given, dinner provided, no further needs
--- NOTE | 2021-04-02 19:15 | NUR ---
SHIFT REPORT RECEIVED FROM RAFFAELEWINACHO SMITH. pt AWAKE AND RESTING IN BED, ALARM ON. RR EVEN AND UNLABORED. IV SITE WNL, FLUIDS INFUSING DIRECTED. URINAL AT BEDSIDE. CALL LIGHT IN REACH.
--- NOTE | 2021-04-02 20:32 | NUR ---
IN TO GET VITALS, PT WANTED NEW LINENS ON THE BED DO TO URINAL ACCIDENT FROM EARLIER, PT UP TO THE CHAIR WITH 1PA PIVOT, THEN BACK TO BED, FRESH ICE FOR SODA CUP PROVIDED, PTs RON COMING OFF, RN INFORMED, NO FURTHER NEEDS AT THIS TIME
--- NOTE | 2021-04-02 21:20 | NUR ---
PT CALLED WANTING HIS ALLYVN REPLACED. TOLD PT STAS WILL BE IN TO SEE HIM NEXT AND NEEDS TO SEE WHAT HIS SKIN LOOKS LIKE BEFORE PLACING A NEW ONE OVER IT. PT IS AGREEABLE TO THIS. TURNED ROOM TEMP DOWN AND TOOK PT'S BREAKFAST ORDER. PT DENIES FURTHER NEEDS, CALL LIGHT IS CLOSE.
--- NOTE | 2021-04-02 21:55 | NUR ---
ASSESSMENT COMPLETE, SCHEDULED MEDS GIVEN, SEE EMAR. pt DENIES PAIN, BUT REPORTS SOME MILD DISCOMFORT IN BILATERAL KNEES, LIDOCAINE CREAM IN PLACE. VSS, pt ON RA. RR EVEN AND UNLABORED. IV FLUIDS INFUSING DIRECTED, IV SITE WNL. NEW ALLEVYNS DATED AND PLACED TO LEFT INNER THIGH D/T SMALL SCATTERED OPEN BLISTERS AND TO RIGHT OUTER THIGH D/T ABRASION. DRY ATTENDS IN PLACE. pt REPORTS EDEMA TO BLE IS "MUCH BETTER, I'M STARTING TO SEE SOME MUSCLE TONE". WILL CONTINUE TO MONITOR. OCCASSIONAL HARSH COUGH NOTED, NONPRODUCTIVE. NO FURTHER NEEDS, CALL LIGHT IN REACH. BED ALARM RESUMED, pt EATING SANDWHICH BOX AT THIS TIME.
--- NOTE | 2021-04-02 22:51 | NUR ---
BED ALARM SET OFF, PT ONLY TRYING TO PULL COVERS UP, SHIFTING IN BED, NO FURTHER NEEDS, BED ALARM IS RESET
--- NOTE | 2021-04-02 23:45 | NUR ---
pt RESTING IN BED WITH EYES CLOSED, RR EVEN AND UNLABORED. SPO2 RANGING FROM 90-98% ON RA, CALL LIGHT IN REACH. BED ALARM REMAINS ON FOR SAFETY. IV FLUIDS INFUSING DIRECTED, CALL LIGHT IN REACH.
--- NOTE | 2021-04-03 00:30 | NUR ---
IN TO CHECK ON PT, BED ALARM SET OFF, PT INCONT OF URINE, UP TO THE TOILET, NEW CHUX ON THE BED, PT WANTS HELP WITH PUTTING PANTS ON, AND SITTING IN CHAIR, CHAIR ALARM IN PLACE, CALL LIGHT AND BEDSIDE TABLE WITH PT
--- NOTE | 2021-04-03 00:50 | NUR ---
CHECKING ON PT, PT NOW WANTS TO BE WHEELED OUT TO THE NURSE'S STATION, SAYING HE NEEDS TO BE READY FOR 'THOSE GUYS', AND ALSO SAYING I NEED TO TALK TO THE PEOPLE OUT THERE, THEN INDACATING THE NURSING STAFF, PT ASKING FOR A DIET SODA, THIS SALES AGENT [employer] OUT OF ROOM TO CHECK, NO DIET PEPSI AVAILABLE, IN TO LET PT KNOW I WILL HAVE TO GET MORE FROM THE KITCHEN, PT STARING TO FALL BACK ASLEEP
--- NOTE | 2021-04-03 01:00 | NUR ---
PT AGAIN ASKING FOR THE RN, LET PT KNOW RN WILL BE IN SOON, JUST FINISHING UP WITH HER OTHER PT, PT UNDERSTANDS
--- NOTE | 2021-04-03 01:20 | NUR ---
IN ROOM TO ROUND ON pt, pt AWAKE AND RESTING IN CHAIR WITH ALARM ON. PER LENDING MANAGER, pt ASKING TO TALK WITH RN. pt TALKING ABOUT FOOTBALL GAME AND STATES, "GOTTA SEE THE FOOTBALL PLAYERS". pt A/O TO SELF, PLACE, EVENTS, AND TIME. pt WAS WATCHING FOOTBALL GAME EARLIER IN SHIFT, SPO2 94% ON RA. DIET SODA PROVIDED, NO ADDITIONAL NEEDS. CHAIR ALARM REMAINS ON, CALL LIGHT IN REACH.
--- NOTE | 2021-04-03 01:45 | NUR ---
PT ASSISTED TO THE THE TOILET, PANTS OFF, NON SLIP SOCKS BACK ON, PT BACK TO BED, BEDSIDE ITEMS IN PLACE, CALL LIGHT IN PLACE, BED ALARM SET
--- NOTE | 2021-04-03 03:47 | NUR ---
NEW BAG IV FLUIDS HUNG AND INFUSING DIRECTED, IV SITE WNL. ASSESSMENT COMPLETE, NO ACUTE CHANGES. pt ALLOWED TO REST, BED ALARM REMAINS ON. CALL LIGHT IN REACH.
--- NOTE | 2021-04-03 05:33 | NUR ---
PT CALLED TO USE URINAL. ATTENDS WERE WET AND CHUX. 1PA FWW TO CHAIR TO CHANGE ATTENDS AND CHUX, PT WOULD LIKE TO STAY IN CHAIR AT THIS TIME. DAILY WEIGHT OBTAINED AND CHIQUI GRAMAJO IS NOW IN ROOM TAKING VS.
--- NOTE | 2021-04-03 05:41 | NUR ---
SCHEDULED THYROID MEDICATION GIVEN, SEE EMAR. NO ADDITIONAL NEEDS VERBALIZED, CALL LIGHT IN REACH. IV SITE WNL, FLUIDS INFUSING DIRECTED.
--- NOTE | 2021-04-03 06:25 | NUR ---
PT CALLED TO HAVE PILLOWS PLACED ON CHAIR UNDER HIM. ICEPACK PROVIDED FOR LOWER BACK. PT DENIES FURTHER NEEDS AT THIS TIME. CALL LIGHT IS CLOSE AND CHAIR ALARM IS ON.
--- NOTE | 2021-04-03 07:36 | NUR ---
Report received from Anitha KAPADIA. Pt resting in bed with eyes closed, resp even and unlabored. IVF infusing WNL. No needs at this time, call light in reach
--- NOTE | 2021-04-03 07:45 | NUR ---
CBG checked, no insulin provided. Scheduled meds administered, assessment complete. Pt sitting up in chair, alert and oriented, watching tv. Breakfast delivered. Lung sounds mildly coarse, pt encouraged to use cornet tool. on room air. Pt denies pain or needs at this time. VSS. IVF infusing WNL.
--- NOTE | 2021-04-03 15:08 | NUR ---
Call light answered, pt finished with using toilet, assisted with wiping. SBA to chair. Dinner ordered. assessment complete
--- NOTE | 2021-04-03 18:24 | NUR ---
pt eats 100% of evening meal sitting upright in the chair. requests assist to bed shortly after. SBA as he ambulates with fww to bed. assisted with pillows and to get comfortable. call light in hand
--- NOTE | 2021-04-03 19:10 | NUR ---
REPORT RECEIVED FROM STEFFI BENAVIDES. pt REQUESTING PRN PAIN MEDICATIONS FOR FEET, RIGHT THIGH PAIN. PRN PAIN MEDICATION ADMINISTERED BY STEFFI BENAVIDES. CALL LIGHT IN REACH. NEW BAG IVF INFUSING WNL.
--- NOTE | 2021-04-03 19:17 | NUR ---
OXYCODONE 5MG PO ADMIN FOR REPORTS OF 8/10 FOOT PAIN.
--- NOTE | 2021-04-03 20:15 | NUR ---
ANSWERED CALL LIGHT. PATIENT ASKED HIS YOGURT 2 AND CUP OF ICE. DONE. PATIENT ASSISTED USING THE URINAL.
--- NOTE | 2021-04-03 21:16 | NUR ---
V/S AND I&O'S AND BLOOD SUGAR CHECK DONE AND RECORDED BY STEFFI SANCHEZ. DONE AND RECORDED BY STEFFI SANCHEZ. PUT AWAY USED BLANKETS IN THE LAUNDRY BASKET.
--- NOTE | 2021-04-03 21:30 | NUR ---
IN pt ROOM FOR ASSESSMENT. pt RATES PAIN 7/10 AT BOTTOM OF FEET DUE TO NEUROPATHY. SCHEDULED GABAPENTIN ADMINISTERED. ASSESSMENT COMPLETE. CBG 141, SS INSULIN ADMINISTERED ORDERED. ALLEVYNS APPLIED TO RIGHT KNEE AND MEDIAL LEFT THIGH. SEROUS FLUID DRAINING. CALL LIGHT IN REACH.
--- NOTE | 2021-04-03 21:47 | NUR ---
CALL LIGHT ANSWERED. ASSISTED PATIENT USED THE URINAL. NO OTHER NEEDS AT THIS TIME.
--- NOTE | 2021-04-03 22:50 | NUR ---
PATIENT CALLED TO USE THE URINAL WITH ASSIST.
--- NOTE | 2021-04-03 23:39 | NUR ---
CALL LIGHT ANSWERED. pt ASSISTED TO USE URINAL IN BED, 275 CLEAR YELLOW VOID. STATES "I CAN'T SLEEP BECAUSE MY CALVES HURT SO BAD". PRN PAIN MEDICATION ADMINISTERED FOR REPORTED 8/10 PAIN. CSM INTACT BLE. DENIES PAIN IN FEET AT THIS TIME. CALL LIGHT IN REACH. IVF INFUSING WNL.
--- NOTE | 2021-04-04 01:30 | NUR ---
HIGH HEEL BUILDER IN ROOM ASSISTING pt TO USE URINAL. MD ON FLOOR, NOTIFIED THAT pt HAS NOT RESTED, STATES UNABLE TO SLEEP WITHOUT HOME MEDICATIONS. MD ORDERING MEDICATION AT THIS TIME, EMAR UPDATED.
--- NOTE | 2021-04-04 02:42 | NUR ---
pt RESTING IN BED WITH EYES CLOSED, BREATHING UNLABORED. LIGHTS OFF IN ROOM.
--- NOTE | 2021-04-04 04:50 | NUR ---
pt RESTING IN BED WITH EYES CLOSED, NO DISTRESS NOTED. LIGHTS OFF IN ROOM.
--- NOTE | 2021-04-04 05:32 | NUR ---
CALL LIGHT ANSWERED. pt ASSISTED TO USE URINAL WITH ROX PERDUE ASSIST. VSS. ASSESSMENT COMPLETE. 2 + EDEMA BLE. pt RATES PAIN 7-8/10 AT BOTTOM OF FEET, DENIES PAIN IN CALVES. PRN PAIN MEDICATION ADMINISTERED. pt STATES "I WAS FINALLY ABLE TO SLEEP". IVF INFUSING WNL. CALL LIGHT IN REACH.
--- NOTE | 2021-04-04 06:39 | NUR ---
ASSISTED PATIENT FROM BATHROOM TO BED. PUT ON FRESH GOWN AND PULL UP. CALL LIGHT AND SIDE TABLE WITHIN REACH.
--- NOTE | 2021-04-04 08:15 | NUR ---
Scheduled medications administered and assessment complete. Pt sitting up in bed eating breakfast, refuses to transfer to chair at this time. IVF infusing WNL. vss. a+o. Pt states having no pain. Reviewed plan of care, pt agreeable.
--- NOTE | 2021-04-04 09:02 | NUR ---
PT AMBULATED IN THE [place] ONE LONG LAP AROUND NURSES STATION AND IS NOW BACK IN ROOM SITTING IN THE CHAIR. CALL LIGHT WITHIN REACH. NO FURTHER NEEDS AT THIS TIME.
--- NOTE | 2021-04-04 09:15 | NUR ---
Rounded on patient who is now sitting up to chair, IVF infusing. Pt states no needs at this time. Resp even and unlabored. No pain reported. Call light in reach
--- NOTE | 2021-04-04 09:37 | NUR ---
Notified by Dr. Flood, she feels pt would benefit from an IP. Called a left a message with [facility]. [facility] IP rehab. Faxed chart of face sheet, H&P, Progress notes, OT/PT eval and notes.
--- NOTE | 2021-04-04 11:30 | NUR ---
Spoke with pt briefly. Discussed IP rehab and pt is very interested in this. Let him know I have faxed his chart to [facility]'s IP rehab per Drs. oliva.
--- NOTE | 2021-04-04 12:00 | NUR ---
CBG checked, warm blankets provided, call light in reach
--- NOTE | 2021-04-04 15:50 | NUR ---
Called and spoke with Sandra muñoz states she received pts chart and it will be reviewed tomorrow am per staff. They will let us know, but there are two IPs ahead of Mr. Kenyon.
--- NOTE | 2021-04-04 17:56 | NUR ---
Pt calls extensively throughout day for items and snacks. 1PA with FWW to BR to void. 60gC diet, yogurt from home in fridge. Pt on room air, VSS, A+O. IVF infusing continuous. PRN oxycodone, lidocaine cream scheduled for legs. PT/OT. Voiding QS. Case configuration management specialist. monitor labs
--- NOTE | 2021-04-04 18:48 | NUR ---
Pt has a followup appointment at [facility] for his spinal surgery 04/06 at 1100.
--- NOTE | 2021-04-04 20:25 | NUR ---
PATIENT HAS BEEN UP TO THE RESTROOM 1PA AND FWW TWICE IN THE LAST HOUR WITH THIS RN ASSISTING. PAIN MEDS GIVEN FOR FEET/LEGS/BACK PAIN 7-12/14. PM NEBS GIVEN. CILR=027 AND 1UNIT INSULIN GIVEN. VS STABLE AND I+O RECORDER. FRESH ICE GIVEN FOR PATIENT'S DIET PEPSI. PATIENT GIVEN NEW WARM BLANKETS. PATIENT CELL PHONE PLUGGED IN TO CHARGE. NEW ATTENDS IN PLACE, ALTHOUGH THE PREVIOUS ONES WERE NOT WET, BUT PATIENT TOOOK THEM OFF AND THROUGH THEM ON THE FLOOR. CALL LIGHT ISIN REACH AND PATIENT HAS NO OTHER CARE NEEDS AT THIS TIME.
--- NOTE | 2021-04-04 21:32 | NUR ---
CALL LIGHT ANSWERED. ASSISTED TO USE URINAL IN BED. NO ADDITIONAL REQUESTS, pt STATES "I WAS ALMOST ASLEEP, I'LL TRY TO SLEEP NOW". CALL LIGHT IN REACH.
--- NOTE | 2021-04-04 23:38 | NUR ---
PATIENT RESTING QUIETLY AT THIS TIME, EYES CLOSED, RESPIRATIONS ARE REGULAR AND EVEN, AND CALL LIGHT IS IN REACH. PATIENT HAS NO CURRENT CARE NEEDS AT THIS TIME.
--- NOTE | 2021-04-05 01:40 | NUR ---
PATIENT RESTING QUIETLY IN SEMI-FOWLERS POSITION, RESPIRATIOS ARE REGULAR AND EVEN, EYES ARE CLOSED, CALL LIGHT IN REACH, AND BED ALARM IS ON. PATIENT HAS NO CURRENT CARE NEEDS AT THIS TIME.
--- NOTE | 2021-04-05 03:08 | NUR ---
PATIENT STILL RESTING QUIETLY ON SEMI-FOWLERS POSITION, EYES CLOSED, RESPIRATIONS ARE REGULAR AND EVEN, AND CALL LIGHT IS IN REACH.
--- NOTE | 2021-04-05 05:05 | NUR ---
PATIENT CONTINUES TO REST QUIETLY IN SEMI-FOWLERS POSITION, EYES CLOSED, RESPIRATIONS EVEN AND REGULAR, CALL LIGHT IN REACH, AND BED ALARM IS ON. NO CARE NEEDS NOTED.
--- NOTE | 2021-04-05 06:45 | NUR ---
PATIENT CALLED AND HAS HAD A X-LARGE INCONTINENCE OF URINE THROUGH MOST OF THE BED. PAULETTE,RN AND PHONGRN ASSISTED THIS RN IN LINEN AND BED CHANGE AND GETTING PATIENT WASHED UP AND BACK TO BED. 1PSBA WITH FWW TO THE BATHROOM AND BACK TO BED. PATIENT ALL CLEANED UP, VS STABLE, I+O CALLCULYED DAILY WEIGHT STANDING DONE AND CHARTED, CALL LIGHT IN REACH AND BED ALARM IS ON. PATIENT HAS NO OTHER CARE NEEDS AT THIS TIME.
--- NOTE | 2021-04-05 07:20 | NUR ---
THIS RN RECEIVED REPORT FROM ARNOLD KAPADIA. PT AWAKE AND PUT HIS CALL LIGHT ON TO NOTIFY STAFF THAT HE WANTED HIS YOGURT. PT PROVIDED YOGURT. PT REPORTS SLIGHT PAIN, WANTS TO WAIT UNTIL AFTER YOGURT.
--- NOTE | 2021-04-05 07:31 | NUR ---
Face sheet, H&P progress notes, PT/OT eval and notes, med list, covid test faxed to [facility] IP rehab. requesting bed for this patient.
--- NOTE | 2021-04-05 08:30 | NUR ---
THIS RN IN PTS ROOM TO GIVE PT MORNING INSULIN. PT STATES THAT HE IS HAVING SOME PAIN AFTER GETTING BACK FROM RESTROOM. PTS PAIN NOTED TO BE 9/10, THIS RN PROVIDED PT WITH 10MG OF OXY.
--- NOTE | 2021-04-05 09:37 | NUR ---
Received call from [facility] rehab. They have questions if pt has cont. to see OT and if pt lives with a friend or alone. Questions answered. [facility] and nurse will review charts this am and let me know if they have a bed for this pt.
--- NOTE | 2021-04-05 10:15 | NUR ---
THIS RN BACK IN PTS ROOM TO GIVE PT THE REST OF PTS MEDS. PT STATES THAT PAIN IS 7/10, THIS RN ASSISTED PT WITH PUTTING CREAM ON PTS BOTTOM OF FEET. PT ABLE TO DO LOWER LEGS, UNABLE TO BOTTOM FEETS. PT REPORTING ABOUT HOW HE DOESN'T LIKE SOME OF THE PHYSICAL THERAPISTS AND STATES "I HAVE THE RIGHT TO REFUSE" THIS RN EDUCATED PT THAT HE ALSO NEEDS TO GET BETTER- PT STATES THAT HE WILL DO THE WORK ON HIS OWN. THIS RN ENCOURAGED PT TO WORK WITH PHYSICAL THERAPY TO THE BEST OF HIS ABILITY.
--- NOTE | 2021-04-05 10:24 | NUR ---
Received a call from [facility] rehab. They have a bed available and would consider taking this pt, but pt is working with PT and OT was signed off.She is questioning why OT signed off when it is documented he cannot put his socks on. Dr. Flood in my office and I updated [facility], was discussing reordering OT and also ST as pt was having cognitive issues. [facility] will hold chart and request updated notes daniella as they have a pt discharging tomorrow. Dr. Flood will order OT to reassess and for ST to eval. She will speak with PT and update to pts goal to have therapy so he can dc home alone to his 5th wheel.
--- NOTE | 2021-04-05 10:31 | NUR ---
Called granddaughter and left a message. Pt notified nurses he received a text on his phone for a Neuro appt tomorrow at [facility]. It is unclear if he accepted to appt or cancelled. Left message with Randee requesting she contact his neuro and update.
--- NOTE | 2021-04-05 12:25 | NUR ---
this rn in pts room to give insulin. pt states that he is doing well. call light within reach
--- NOTE | 2021-04-05 13:57 | NUR ---
THIS RN IN PTS ROOM TO GET PT FROM BATHROOM TO CHAIR. PT STEADY ON FEET WHEN USING FWW. PT STATES THAT HE NEEDS ICE FOR POP AND A WARM BLANKET FOR FEET- BOTH PROVIDED TO PT. PT ON PHONE, STATES NEEDS NOTHING ELSE. CALL LIGHT WITHIN REACH
--- NOTE | 2021-04-05 14:15 | NUR ---
PT IN ROOM WORKING WITH PHYSICAL THERAPY. NO FURTHER NEEDS AT THIS TIME.
--- NOTE | 2021-04-05 15:39 | NUR ---
THIS RN IN PTS ROOM TO ASSIST PT BACK FROM THE RESTROOM. THIS RN ALSO PROVIDED PT WITH HIS AFTERNOON MEDS. PT ASKING ABOUT DISCHARGE TOMORROW THIS RN STATED THAT THIS MIGHT BE THE CASE AND WILL KNOW MORE SOON.
--- NOTE | 2021-04-05 15:51 | NUR ---
Faxed updated OT/PT and progress notes to [facility] IP rehab.
--- NOTE | 2021-04-05 17:00 | NUR ---
this rn in pts room to do blood sugar. this rn encouraged pt to drink water. pt needs nothing else, call light within reach
--- NOTE | 2021-04-05 19:30 | NUR ---
REPORT RECEIVED FROM STEFFI LIRA. pt UP IN CHAIR WATCHING TV. NO NEEDS AT THIS TIME. CALL LIGHT IN REACH.
--- NOTE | 2021-04-05 20:38 | NUR ---
pt SITTING UP IN BED. VSS. CBG WNL. ASSESSMENT COMPLETE. pt RATES PAIN 8/10 IN LEGS, BOTTOM OF FEET. PRN PAIN MEDICATION ADMINISTERED. SCHEDULED MEDICATIONS ADMINISTERED. RUB AUSCULTATED THROUGHOUT ALL LUNG LOBES. RT/RN PHONG IN ROOM FOR SCHEDULED NEB TREATMENT. CALL LIGHT IN REACH.
--- NOTE | 2021-04-05 23:34 | NUR ---
CHECKED ON pt. RESTING IN BED WATCHING TV. REQUESTING HIS YOGURT. ONE YOGURT PROVIDED. SBA WITH FWW TO RESTROOM. pt VERBALIZES UNDERSTANDING TO USE CALL LIGHT WHEN FINISHED.
--- NOTE | 2021-04-05 23:43 | NUR ---
ASSISTED PATIENT FROM BATHROOM TO BED USING WALKER. CUP OF ICE PROVIDED. NO OTHER NEEDS AT THIS TIME.
--- NOTE | 2021-04-06 00:50 | NUR ---
CHECKED ON pt. RESTING IN BED WITH EYES CLOSED. BREATHING EQUAL AND UNLABORED. LIGHTS OFF IN ROOM.
--- NOTE | 2021-04-06 02:35 | NUR ---
CHECKED ON pt. RESTING IN BED WITH EYES CLOSED, BREATHING UNLABORED. LIGHTS OFF IN ROOM. CALL LIGHT WITHIN REACH.
--- NOTE | 2021-04-06 03:58 | NUR ---
RECEIVED REPORT FROM DAY SHIFT RN. PATIENT IS RESTING IN BED WITH EYES CLOSED, RR 15. CALL LIGHT IN REACH.
--- NOTE | 2021-04-06 05:10 | NUR ---
PATIENT ASSESMENT COMPLETED. PATIENT ASSISTED TO THE RESTROOM. PATIENT WAS INCONTINENT OF URINE. PATIENT CLEANED UP AND NEW GOWN PLACED ON PATIENT. INTKAE AND OUTPUT RECORDED. VITALS TAKEN AND RECORDED. PATIENTS MORNING MEDICATIONS GIVEN PER ORDER. PATIENT RATES PAIN AT A 4/10. PRN PAIN MEDICATION GIVEN PER ORDER. PATIENT DENIES ANY FURTHER NEEDS. LAB IN ROOM. PATIENT DENIES ANY FURTHER NEEDS. CALL LIGHT IN REACH.
--- NOTE | 2021-04-06 07:35 | NUR ---
this rn received report from alejandro berman. pt appears to be resting at this time with respirations noted.
--- NOTE | 2021-04-06 08:30 | NUR ---
Discussed in [address] Flood. [facility].
--- NOTE | 2021-04-06 08:51 | NUR ---
this rn in pts room to give morning meds. pt sitting up to chair this am. pt states that he needs to use the restroom while this rn in room. this rn transferred pt to restroom and then back to chair. pt does well while using fww. all meds given- education given on meds- pt does not express interest in learning about meds or express understanding of other teaching on his meds. call light within reach and no other needs noted at this time.
--- NOTE | 2021-04-06 09:17 | NUR ---
PTOT is in room. Patient vitals, I&Os are complete. Call light is in reach and patient is in chair. Patient's linens were changed.
--- NOTE | 2021-04-06 10:53 | NUR ---
this rn in pts room per pt request. pt asking for ice. this rn provided pt with ice for pepsi and fresh ice water- encouraged pt to drink more water
--- NOTE | 2021-04-06 11:30 | NUR ---
Notified by Rn pt is threatening to go ama if he doesn't go to rehab today. Updated Rn I have attempted to contact Arelis at [facility], but no answer. I know they review charts with their physician midmorning daily. I am awaiting a return call.
--- NOTE | 2021-04-06 11:50 | NUR ---
THIS RN IN PTS ROOM TO GET PTS BLOOD SUGAR. SUGAR WNL, NO INSULIN NEEDED. PT STATES THAT IF HE DOESN'T GO TO A FACILITY TODAY THAT HE WILL LEAVE AMA. THIS RN DISUCSSED WITH PT THAT PER HIS SAFETY WE HAVE NOT DISCHARGED HIM TO HOME. THIS RN STATED THAT WE DO NOT TAKE THREATS OF LEAVING AMA LIGHTLY. PT STATED UNDERSTANDING AND STATED "I GO TO 4 DIFFERENT HOSPITALS, YOU ARE NOT THE ONLY PLACE THAT CAN TAKE CARE OF ME" PT HAS CALL LIGHT WITHIN REACH, UP TO CHAIR AND VISITOR JUST ARRIVED.
--- NOTE | 2021-04-06 13:34 | NUR ---
this rn in pts room per pt request. this rn porvided pt with 10mg oxycodone per request for pain 01/14, pt sitting up in chair, no grimace noted on face, watching tv. warm blanket also provided. lungs have expiratory wheezes noted. this rn asked if pt is using bugler- pt states yes- this rn encouraged pt to continue to use it to help improve his cough.
--- NOTE | 2021-04-06 13:50 | NUR ---
Patient is in chair with call light. Patient would like to talk with the doctor today.
--- NOTE | 2021-04-06 14:36 | NUR ---
ST note faxed to [facility]' rehab documenting pt would benefit from IP rehab.
--- NOTE | 2021-04-06 14:47 | NUR ---
THIS RN IN PTS ROOM TO GIVE PT AFTERNOON MEDS. PT SITTING UP TO CHAIR. PT REPORTS THAT HIS PAIN IS 5-6/10 AT THIS TIME. PT REPORTS THAT HE NEEDS NOTHING FURTHER. THIS RN ENCOURAGED PT TO DRINK MORE WATER, PT REPORTS THAT OUR WATER "TASTES LIKE PERFUME" THIS RN TO ORDER PT BOTTLED WATER- PT STATES THAT HE HAS A SPECIFIC BRAND HE LIKES.
--- NOTE | 2021-04-06 17:20 | NUR ---
GABI RN IN PTS ROOM TO GET PTS BLOOD SUGAR.PT DOES NOT NEED INSULIN COVERAGE. PT DOING WELL AND PER REPORT DOES NOT NEED ANYTHING AT THIS TIME.
--- NOTE | 2021-04-06 17:35 | NUR ---
Patient is in chair with call light in reach.
--- NOTE | 2021-04-06 18:44 | NUR ---
PATIENT GIVEN ONE 5MG OXYCODONE FOR 8/10 BACK/LEG PAIN.
--- NOTE | 2021-04-06 19:45 | NUR ---
IN TO ASSIST PT TO THE TOILET, PT BACK TO BED, LOTION FOR LEGS AND FEET APPLIED BY PT WITH SOME ASSISTANCE, RN IN RM FOR MEDS, VITALS DONE, TRASH EMPTIED, RN NOW IN RM FOR TREATMENT
--- NOTE | 2021-04-06 19:47 | NUR ---
RECEIVED REPORT FROM DAY SHIFT RN. PATIENT DENIES ANY NEEDS. PATIENT IS RESTING IN BED WATCHING TV.
--- NOTE | 2021-04-06 20:10 | NUR ---
PATIENT ASSESMENT COMPLETED. VITALS TAKEN AND RECORDED. INTAKE AND OUTPUT RECORDED. BS WNL. PATIENTS SCHEDULED MEDICATIONS GIVEN PER ORDER. PATIENT RATES PAIN AT A 4/10 ON HIS BACK. PATIENT DENIES THE NEED FOR PAIN MEDICATION AT THIS TIME. RT IN ROOM TO ADMINISTER NEB. PATIENT DENIES ANY FURTHER NEEDS. CALL LIGHT IN REACH.
--- NOTE | 2021-04-06 21:30 | NUR ---
PT UP TO VOID, BACK AT THE BEDSIDE, PT ASSISTED WITH LEG LOTION, YOGURT PROVIDED FROM [facility], NO FURTHER NEEDS AT THIS TIME
--- NOTE | 2021-04-06 21:52 | NUR ---
PT BACK INTO BED, WARM BLANKET PROVIED, NO FURTHER NEEDS AT THIS TIME
--- NOTE | 2021-04-06 22:23 | NUR ---
PATIENT SITTING IN BED WATCHING TV AND EATING YOGURT. PATIENT DENIES ANY NEEDS AT THIS TIME. CALL LIGHT IN REACH. BED ALARM ON FOR SAFETY.
--- NOTE | 2021-04-07 00:20 | NUR ---
PATIENT IS RESTING IN BED WITH EYES CLOSED, RR 15. CALL LIGHT IN REACH. BED ALARM ON FOR SAFETY.
--- NOTE | 2021-04-07 01:21 | NUR ---
PATIENT WAS INCONTINET OF URINE. PATIENTS BEDDING CHANGED. PATIENTS GOEN AND ATTEND CHANGED. IVAN CARE AND WIPE DOWN OF LOWER EXT COMPLETED. PATIENT IS BACK IN BED RESTING. PATIENT DENIES ANY FURTHER NEEDS. CALL LIGHT IN REACH. BED ALARM ON FOR SAFETY.
--- NOTE | 2021-04-07 02:30 | NUR ---
PATIENT IS RESTING IN BED WITH EYES CLSOED, RR 15. CALL LIGHT IN REACH. BED ALARM ON FOR SAFETY.
--- NOTE | 2021-04-07 03:31 | NUR ---
PATIENT ASSISTED TO THE RESTROOM A SBA W/FWW. PATIENT WAS ABLE TO VOID. PATIENT IS BACK IN BED RESTING. PATIENTS BED ALARM IS ON FOR SAFETY. CALL LIGHT IN REACH.
--- NOTE | 2021-04-07 04:33 | NUR ---
VITALS TAKEN AND RECORDED. INTAKE AND OUTPUT RECORDED. PATIENT RATES PAIN IN HIS BACK AT AN 8/10. PRN PAIN MEDICATION GIVEN PER ORDER. PATIENT DENIES ANY FURTHER NEEDS. CALL LIGHT IN REACH.
--- NOTE | 2021-04-07 05:14 | NUR ---
SCHEDULED MEDICATIONS GIVEN PER ORDER. PATIENT UP TO THE RESTROOM A SBA W/FWW. PATIENT WAS ABLE TO VOID. DW TAKEN AND RECORDED. PATIENT IS BACK IN BED RESTING. NO FURTHER NEEDS NOTED. CALL LIGHT IN REACH.
--- NOTE | 2021-04-07 07:12 | NUR ---
REPORT RECIEVED FROM RESEARCH ENGINEER MARINE EQUIPMENT RN, PATIENT IN BED RESTING CALL LIGHT WITHIN REACH NO NEEDS AT THE MOMENT.
--- NOTE | 2021-04-07 08:15 | NUR ---
RN IN ROOM TO CHECK PT BLOOD SUGAR, BG 86 PATIENT ASSISTED TO THE THE BATHROOM, AND UP TO THE CHAIR FOR BREAKFAST, COMPLAINING OF 10/10 PAIN PRN OXYCODONE GIVEN, CALL LIGHT WITHIN REACH NO OTHER NEEDS AT THE MOMENT.
--- NOTE | 2021-04-07 11:00 | NUR ---
Awaiting call from Arelis at [facility] [place] [facility] to accept of decline pt for their program. Spoke with Chino. He states he is ok, wanting to go where ever he can for rehab. Let him know I am stiall awaiting a call.
--- NOTE | 2021-04-07 11:11 | NUR ---
Patient is in chair. Call light is in reach and doctor just walked into room.
--- NOTE | 2021-04-07 11:58 | NUR ---
RN IN ROOM TO CHECK BLOOD SUGAR PT SITTING IN CHAIR, PT REQUEST ONLY [facility]T FOR LUNCH NO OTHER NEEDS
--- NOTE | 2021-04-07 13:50 | NUR ---
Patient's BP on right arm was 125/57. Map was 73. Pulse was 73. Charge nurse was notified.
--- NOTE | 2021-04-07 13:53 | NUR ---
Called and spoke with Arelis at [facility]. She is awaiting final confirmation from the Car Seat Upholsterer. She will send him a text and call me back.
--- NOTE | 2021-04-07 13:56 | NUR ---
Patient is in chair with call light in reach. Vitals are complete.
--- NOTE | 2021-04-07 14:38 | NUR ---
pt up in bathroom with tech rn offered patient a shower states he is willing to take one, volleyball commentator in room helping pt shave and shower
--- NOTE | 2021-04-07 16:33 | NUR ---
Notified by Arelis, pt has been declined by clinical auditor Rg. Spoke with pt and he agrees to go to SNF for rehab, he would prefer [facility]. Called and spoke with Remedios. She is not sure if they will have a room available tomorrow or Sat. She will call me back in the AM. I will fax 3 days progress notes, face sheet, Therapy eval and notes, med list.
--- NOTE | 2021-04-07 16:44 | NUR ---
Chart faxed to Dyan at [facility] and [facility]. Called and left messages for both asking if they have beds available for tomorrow.
--- NOTE | 2021-04-07 16:52 | NUR ---
rn in room to do blood sugar patient in bed , glucose 83, denies no other needs. call light within reach
--- NOTE | 2021-04-07 18:16 | NUR ---
Patient is in bed with call light in reach. Vitals, I&Os are complete.
--- NOTE | 2021-04-07 18:42 | NUR ---
PATIENT COMPLAINING OF 8/10 PAIN PRN OXY GIVEN NO OTHER NEEDS
--- NOTE | 2021-04-07 19:30 | NUR ---
SHIFT REPORT RECEIVED FROM REMIGIO KAPADIA. PT RESTING IN BED. NO NEEDS AT THIS TIME. CALL LIGHT IN REACH.
--- NOTE | 2021-04-07 19:45 | NUR ---
PT RECENTLY UP TO VOID AND BACK TO BED
--- NOTE | 2021-04-07 20:25 | NUR ---
IN TO GET VITALS, I&Os, FRESH ICE WATER AND ICE FOR SODA, PROVIDED, ROOM TIDIED, NO FURTHER NEEDS AT THIS TIME
--- NOTE | 2021-04-07 20:51 | NUR ---
ASSESSMENT COMPLETED. PT REPORTS NUMBNESS AND TINGLING IN HANDS AND FEET, CHRONIC. FOOT PAIN 12/14, PT STATES HE "LIVES" AT AN 12/14. SCHEDULED MEDS PROVIDED. LUNGS DIM, HEART TONES REGULAR. ABD FIRM, OBESE, BOWEL TONES ACTIVE. PULSES INTACT. IV WNL, CDI, FLUSHED WELL. RLE HAS 2+ EDEMA, LLE HAS 1+ EDEMA. INCISIONS TO BACK WNL. SCABS ON INNER LEFT THIGHT AND RIGHT KNEE NOTED, MED APPLIED. NO OTHER NEEDS. CALL LIGHT IN REACH.
--- NOTE | 2021-04-07 21:45 | NUR ---
IN ROOM TO ROUND CHARGE. pt AWAKE AND RESTING IN BED, RT ALVINO IN ROOM TO COMPLETE SCHEDULED BREATHING TREATMENT. NO NEEDS OR CONCERNS VERBALIZED, CALL LIGHT IN REACH.
--- NOTE | 2021-04-07 21:50 | NUR ---
IN TO ASSIST RT, PT LAYING SIDEWAYS IN BED, STATES HE HAS BEEN TIRED THIS EVENING, ASSISTED PT PROPERLY INTO BED, ICE FOR SODA FILLED, RT STARTING BREATHING TREATMENT, NO FURTHER NEEDS AT THIS TIME
--- NOTE | 2021-04-08 | NUR ---
SPO2 DROPS TO 86% WHILE SLEEPING. O2 UP TO 2L NC. CALL LIGHT IN REACH.
--- NOTE | 2021-04-08 | NUR ---
PT RESTING IN BED. CALL LIGHT IN REACH.
--- NOTE | 2021-04-08 02:00 | NUR ---
PT RESTING IN BED. CALL LIGHT IN REACH.
--- NOTE | 2021-04-08 03:00 | NUR ---
PT CALLED TO GET UP TO THE TOILET, INCONT AT THIS TIME WELL, ICE FOR SODA FILLED, PT BACK TO BED AT THIS TIME, NO FURTHER NEEDS
--- NOTE | 2021-04-08 03:38 | NUR ---
PT HEARD COUGHING IN ROOM. PT STATES "IT'S JUST A DRY COUGH I ALWAYS HAVE!" ASSESSMENT COMPLETED. LUNGS CLEAR BUT DIM IN LOWER LOBES. HEART TONES REGULAR. NO OTHER NEEDS AT THIS TIME. CALL LIGHT IN REACH.
--- NOTE | 2021-04-08 04:50 | NUR ---
PT CALLED, ASSISTED UP TO THE TOILET, DAILY WT DONE, BACK TO BED, VITALS DONE, NO FURTHER NEEDS AT THIS TIME, CALL LIGHT IN REACH
--- NOTE | 2021-04-08 07:10 | NUR ---
report recieved from manager study rn pt sleeping in bed respirations even and non labored, call light within reach no needs at the moment
--- NOTE | 2021-04-08 07:50 | NUR ---
Received text from Tory at [facility] and she will have heating equipment repairer pts. chart. [phone] Attempted to contact Remedios at [facility] in [place] to see if a bed has opened. Message left as I was unable to reach.
--- NOTE | 2021-04-08 08:30 | NUR ---
Received text from Tory at [facility], they will accept this pt tomorrow morning. I called and spoke with susanna at [facility] as this is pts. preference and she is not sure if they will have a bed open. She is awaiting calls. In and spoke with Chino. He states he is willing to go to [facility] tomorrow. He is again insisting he needs answer or he will leave AMA. Encouraged him to not do this as he will benefit from further therapy as he is going home alone.
--- NOTE | 2021-04-08 09:29 | NUR ---
PT complaining of back pain, prn oxycodone given.
--- NOTE | 2021-04-08 10:21 | NUR ---
Carroll Spears pt would like to go through their rehab. She requests he arrive between 9-11 tomorrow morning. His friend will drive him and I will request Dr. Flood complete orders today to send as their intake people are not their on the weekend. Tory also request documentation for covid vaccine. Updated pt states he has had vaccine x2 and a booster at the [facility] in [place]. I called three different numbers to check if they could fax this info to me and had to leave messages for all. Carroll Spears. She will work on getting this info.
--- NOTE | 2021-04-08 10:27 | NUR ---
patient up in trejo walking with pt.
--- NOTE | 2021-04-08 11:34 | NUR ---
PT REQUESTING FRESH ICE CHIPS, UP IN RECLINER DENIES ANY OTHER NEEDS AT THE MOMENT
--- NOTE | 2021-04-08 11:43 | NUR ---
CONNECTED WITH PT HE WAS AMBULATING IN [facility] WITH [facility]. GAVE PT ENCOURAGEMENT, HE ACKNOWLEDGED. WILL CONTINUE TO FOLLOW
--- NOTE | 2021-04-08 11:52 | NUR ---
PT LUNCH BLOOD GLUCOSE 120, NO INSULIN GIVEN, PATIENT UP IN CHAIR HAVING LUNCH NO OTHER NEEDS AT THE MOMENT.
[2021-04-08] MEDS ORDERED: DOXAZOSIN MESYLA4 MG PO (12:26)
[2021-04-08] MEDS ORDERED: AMLODIPINE BESY10 MG PO (12:27)
[2021-04-08] MEDS ORDERED: LIDOCAINE35.44 GM TOP (12:32)
[2021-04-08] MEDS ORDERED: GABAPENTIN600 MG PO (12:55)
[2021-04-08] MEDS ORDERED: MONTELUKAST SOD10 MG PO (12:56)
[2021-04-08] MEDS ORDERED: TRAZODONE HCL100 MG PO (12:56)
[2021-04-08] MEDS ORDERED: DOCUSATE SODIU100 M1 PO (12:56)
[2021-04-08] MEDS ORDERED: OXYCODONE HCL5 MG PO (12:57)
[2021-04-08] MEDS ORDERED: ELIQUIS5 MG PO (13:20)
--- NOTE | 2021-04-08 13:31 | NUR ---
patient called to ambulate in trejo, patient tolerated well and did two laps around the unit
--- NOTE | 2021-04-08 14:40 | NUR ---
RN IN ROOM TO GIVE PT GABAPENTIN, SITTING IN RECLINER WARM BLANKET PROVIDED AND FRESH ICE CHIPS NO OTHER NEEDS AT THE MOMENT
--- NOTE | 2021-04-08 17:06 | NUR ---
rn in to assist patient up to the bathroom, assisted back to chair to eat dinner tolerated well only want to eat yogurt denies any other needs at the moment
--- NOTE | 2021-04-08 19:30 | NUR ---
SHIFT REPORT RECEIVED FROM REMGIIO KAPADIA. PT RESTING IN BED, WATCHING TV. NO NEEDS AT THIS TIME. CALL LIGHT IN REACH.
--- NOTE | 2021-04-08 19:40 | NUR ---
IN TO ASSIST PT BACK FROM THE TOILET, BM AND VOID, ASSISTED PT WITH LEG LOTION NEEDED, PT BACK TO BED, ASKING IF HE CAN GET A PAIN PILL SO HE CAN BE READY TO SLEEP, LET RN KNOW PTs REQUEST, NO FURTHER NEEDS AT THIS TIME
--- NOTE | 2021-04-08 20:28 | NUR ---
ASSESSMENT COMPLETED. GCS 15, A&O X4. LLE 1+ EDEMA AND RLE 2+ EDEMA. PT HAS 9/10 BLE, PRN PAIN MEDS PROVIDED. PT REPORTS NUMBNESS AND TINGLING IN HANDS AND FEET. LOWER BACK SURGERY SITE WNL. LUNGS CLEAR, HEART TONES REGULAR. SCHEDULED MEDS PROVIDED. PT HAS GENERALIZED SWELLING IN RIGHT THIGH AND GROIN. NO OTHER NEEDS AT THIS TIME. CALL LIGHT IN REACH.
--- NOTE | 2021-04-08 20:44 | NUR ---
ASSISTING PT UP TO THE TOILET, WILL CALL WHEN READY
--- NOTE | 2021-04-08 20:51 | NUR ---
PT BACK TO BED, SITTING UP AT THE BEDSIDE FOR A MINUTE, PER PT REQEUST, NO FURTHER NEEDS AT THIS TIME
--- NOTE | 2021-04-08 23:00 | NUR ---
PT RESTING IN BED. RR EVEN, UNLABORED. CALL LIGHT IN REACH.
--- NOTE | 2021-04-09 01:00 | NUR ---
PT RESTING IN BED. RR EVEN, UNLABORED. CALL LIGHT IN REACH.
--- NOTE | 2021-04-09 03:20 | NUR ---
ASSISTING PT TO THE TOILET, NEW ATTENDS ON, BACK TO BED, ICE FOR SODA REFILLED, NO FURTHER NEEDS
--- NOTE | 2021-04-09 04:00 | NUR ---
PT CALLS TO ASK FOR WARM BLANKET, PROVIDED. ASSESSMENT COMPLETED. PULSES INTACT. NUMBNESS AND TINGLING IN ALL EXTREMITIES. BLE EDEMA, RIGHT THIGH AND SCROTAL EDEMA UNCHANGED. IV WNL. NO OTHER NEEDS AT THIS TIME. CALL LIGHT IN REACH.
--- NOTE | 2021-04-09 04:10 | NUR ---
IN TO GET VITALS WHILE PT WAS STILL AWAKE, NO FURTHER NEEDS
--- NOTE | 2021-04-09 05:27 | NUR ---
PT CALLS FOR PAIN MED FOR 8/10 FOOT PAIN, PROVIDED. SCHEDULED MED PROVIDED. NO OTHER NEEDS. CALL LIGHT IN REACH.
--- NOTE | 2021-04-09 06:15 | NUR ---
IN TO ASSIST PT UP TO THE TOILET AND BACK TO BED, WARM BLANKET PROVIDED, NO FURTHER NEEDS AT THIS TIME
--- NOTE | 2021-04-09 07:10 | NUR ---
report recieved from hourly shift manager RN patient in bed resting no needs at the moment
--- NOTE | 2021-04-09 08:35 | NUR ---
rn in to do assessment and give patient morning meds, up on the side of the bed eating breakfast pain is tolerable no needs at the moment
--- NOTE | 2021-04-09 08:59 | NUR ---
report called to Dinora at [facility], all questions answered.
--- NOTE | 2021-04-09 12:21 | NUR ---
[facility] CALLED TO REPORT PATIENT HAD NOT ARRIVED 1 HOUR POST DISCHARGE. CALLED IVONNE, PATIENTS CONTACT, TO FIND OUT WHERE PATIENT WAS. IVONNE REPORTED PATIENT HAS NOW DECLINCED TO GO TO [facility]. [facility] PER DR DAVILA INSTRUCTION, THAT CHU[facility] WILL BE AN AMA SINCE HE IS NOT FOLLOWING THE DISCHARGE PLAN. HE WILL NOT GET TO RECEIVE HIS DISCHARGE MEDS IF HE DOES NOT CHECK INTO [facility], MEDICATIONS WHERE SENT OVER. ALSO, EXPLAINED THAT ONE OF THE MEDS WAS A BLOOD THINNER AND COULD BE LIFE THREATENING IF NOT TAKEN. DR DAVILA INSTRUCTED THE PATIENT TO FOLLOW WITH PCP ON SUNDAY. THIS WAS COMMUNICATED TO IVONNE. THIS NURSE CALLED AND UPDATED [facility]
== END 2021-04-09 10:05 | DRG 557 ==
LOC: ED 09:33 → MS 09:35 → CCU 18:11 → MS 18:11 → CCU 18:46 → MS 03-30 15:05
PROVIDERS: ADMIT Internal Medicine; ATTEND Internal Medicine
DX: M62.82 Rhabdomyolysis (principal); G93.41 Metabolic encephalopathy; N17.9 Acute kidney failure, unspecified; I82.451 Acute embolism and thrombosis of right peroneal vein; Z20.822 Contact with and (suspected) exposure to COVID-19; E86.0 Dehydration; E11.65 Type 2 diabetes mellitus with hyperglycemia; G47.33 Obstructive sleep apnea (adult) (pediatric); J44.9 Chronic obstructive pulmonary disease, unspecified; K75.89 Other specified inflammatory liver diseases; G89.4 Chronic pain syndrome; E03.9 Hypothyroidism, unspecified; N40.0 Benign prostatic hyperplasia without lower urinary tract symptoms; I10 Essential (primary) hypertension; Z98.890 Other specified postprocedural states; Z95.2 Presence of prosthetic heart valve; Z79.899 Other long term (current) drug therapy; Z79.82 Long term (current) use of aspirin
CPT/HCPCS: 70450; 71045; 73560; 80048; 80053; 80076; 81001; 82553; 82803; 83605; 83735; 85025; 85610; 85730; 87040; 87077; 92523; 93005; 93010; 93971; 94640; 94660; 94667; 94668; 94760; 96372; 96374; 97110; 97112; 97116; 97163; 97166; 97168; 97530; 97535; 99285-25; C9803; G0378; G0480; J1650; J1815; J3475; J7030; J7121; U0003